=== PATIENT | male | born 1945 | race Caucasian/White ===

== ENCOUNTER 2017-01-08 00:06 | Emergency (ER) | payer MEDICARE, OTHER ==
--- NOTE | 2017-01-08 01:23 | ER Document Report ---
ED General - General Chief Complaint: Dizziness Stated Complaint: DIZZINESS,LEFT EAR PAIN Time Seen by Provider: 01/08/17 01:06 Notes: Patient is a 71-year-old male that comes to the ED for chief complaint of intermittent discomfort in the left ear, he also states that he's noticed today that when he stands up he briefly feels lightheaded, he states this resolves quickly and then he feels normal walking around. He denies any chest pain, shortness of breath, headache, head injury. Past medical history of CAD, type II diabetes, hypertension, CVA with chronic left-sided weakness. He denies any new weakness or numbness. He denies any fever or chills. He denies any cough or congestion. TRAVEL OUTSIDE OF THE [place] IN LAST 30 DAYS: No - Related Data Allergies/Adverse Reactions: iodine [Iodine] Allergy (Severe, Verified 01/08/17 00:26) pt has difficulty breathing bacitracin [Bacitracin] Allergy (Verified 01/08/17 00:26) Anaphylaxis omeprazole [Omeprazole] Allergy (Verified 01/08/17 00:26) pantoprazole [Pantoprazole] Allergy (Verified 01/08/17 00:26) shellfish derived Allergy (Verified 01/08/17 00:26) CREST TOOTHPASTE Allergy (Severe, Uncoded 01/08/17 00:26) shortness of breath, closses up throat dye Allergy (Severe, Uncoded 01/08/17 00:26) Shortness of Breath OPTHALIME Allergy (Uncoded 01/08/17 00:26) Past Medical History - General Information source: Patient - Social History Smoking Status: Never Smoker Frequency of alcohol use: None Drug Abuse: None Lives with: Family Family History: CAD - Past Medical History Cardiac Medical History: Reports: Hx Hypercholesterolemia, Hx Hypertension Denies: Hx Coronary Artery Disease, Hx Heart Attack Pulmonary Medical History: Reports: Hx Asthma Denies: Hx Bronchitis, Hx COPD, Hx Pneumonia, Hx Tuberculosis Neurological Medical History: Reports: Hx Cerebrovascular Accident - 1984, 2003( x3). Denies: Hx Seizures Endocrine Medical History: Reports: Hx Diabetes Mellitus Type 2 Renal/ Medical History: Denies: Hx Peritoneal Dialysis Musculoskeltal Medical History: Reports Hx Arthritis Psychiatric Medical History: Reports: Hx Anxiety, Hx Depression, Hx Post Traumatic Stress Disorder Past Surgical History: Reports: Hx Cardiac Catheterization, Hx Orthopedic Surgery - Bilat Knee Replacements. Denies: Hx Pacemaker - Immunizations Hx Diphtheria, Pertussis, Tetanus Vaccination: Yes Hx Pneumococcal Vaccination: 08/28/11 Review of Systems - Review of Systems Constitutional: See HPI EENT: See HPI Cardiovascular: See HPI Respiratory: No symptoms reported Gastrointestinal: No symptoms reported Genitourinary: No symptoms reported Male Genitourinary: No symptoms reported Musculoskeletal: No symptoms reported Skin: No symptoms reported Hematologic/Lymphatic: No symptoms reported Neurological/Psychological: See HPI Physical Exam - Vital signs Vitals: Temp Pulse Resp BP Pulse Ox 98.3 F 84 16 138/88 H 100 01/08/17 00:26 01/08/17 00:26 01/08/17 00:26 01/08/17 00:01/08/17 00:26 Interpretation: Normal - General General appearance: Appears well, Alert In distress: None - Patient alert and well-appearing - HEENT Head: Normocephalic, Atraumatic Eyes: Normal Conjunctiva: Normal Extraocular movements intact: Yes Eyelashes: Normal Pupils: PERRL Ears: Normal External canal: Normal Tympanic membrane: Other - Borderline left-sided effusion, no erythema, loss of landmarks, or other abnormality noted Sinus: Normal Nasal: Normal Mouth/Lips: Normal Mucous membranes: Normal Pharynx: Normal Neck: Normal - Respiratory Respiratory status: No respiratory distress Chest status: Nontender Breath sounds: Normal. No: Decreased air movement, Wheezing Chest palpation: Normal - Cardiovascular Rhythm: Regular Heart sounds: Normal auscultation Murmur: No - Abdominal Inspection: Normal Distension: No distension Bowel sounds: Normal Tenderness: Nontender Organomegaly: No organomegaly - Back Back: Normal, Nontender - Extremities General upper extremity: Nontender, Other - Patient has a slightly contracted left hand which favors all of his fingers except for the index which he moves normally, otherwise unremarkable exam General lower extremity: Normal inspection, Nontender, Normal ROM, Normal strength - Neurological Neuro grossly intact: Yes Cognition: Normal Orientation: AAOx4 [place] Coma Scale Eye Opening: Spontaneous [place] Coma Scale Verbal: Oriented [place] Coma Scale Motor: Obeys Commands [place] Coma Scale Total: 15 Speech: Normal Cranial nerves: Normal Cerebellar coordination: Normal Motor strength normal: LUE, RUE, LLE, RLE Additional motor exam normals: Equal sole filler, Other - Patient with a slightly abnormal gait which seems to favor his left leg, otherwise unremarkable Sensory: Normal - Psychological Associated symptoms: Normal affect, Normal mood - Skin Skin Temperature: Warm Skin Moisture: Dry Skin Color: Normal Course - Re-evaluation Re-evalutation: I had patient stand up in the room and ambulate, he does so without difficulty. Patient does have a slightly abnormal gait which appears to be secondary to his chronic left-sided weakness, patient states this is his normal gait. After a brief moment patient denied any lightheadedness. EKG with no acute abnormality and no change as compared to prior, cardiac enzymes negative, CBC and chemistry are generally unremarkable. Vital signs unremarkable. Patient with a borderline or effusion on the left side, physical examination is unremarkable otherwise, no acute neurological deficits. Patient heart he has a cost accounting manager that he follows with, he states that he will call them for a close follow-up, requests to be discharged at this time, I believe this is appropriate as no evidence of ACS him a arrhythmia, or other abnormality is noted or suspected. Discussed return precautions, patient and state understanding and agreement. - Vital Signs Vital signs: Temp Pulse Resp BP Pulse Ox 97.8 F 57 L 16 135/73 H 98 01/08/17 03:06 01/08/17 03:06 01/08/17 03:06 01/08/17 03:06 01/08/17 03:06 - Laboratory Result Diagrams: 01/08/17 01:35 01/08/17 01:35 Laboratory results interpreted by me: 01/08/17 01/08/17 01:35 01:35 RBC 4.34 L RDW 15.0 H Chloride 108 H Carbon Dioxide 20 L BUN 25 H Creatinine 1.69 H Est GFR ( Amer) 49 L Est GFR (Non-Af Amer) 40 L Glucose 120 H Discharge - Discharge Clinical Impression: Lightheadedness, Discomfort of left ear Condition: Stable Disposition: HOME, SELF-CARE Additional Instructions: Use the nasal spray to help clear the congestion and fluid behind your left eardrum. No infection is seen. Your workup shows no acute abnormalities. If symptoms of intermittent mild lightheadedness after standing continue please follow-up closely with your cost accounting manager in the next several days. Return immediately for any concerning worsening symptoms including passing out, chest pain, headache, numbness or weakness, or any other concerning symptoms. Prescriptions: Fluticasone Propionate [Flonase Nasal [place] 50 Mcg/[place] 16 gm] 1 spray NASL Q12 #1 inhaler Referrals: ROSALES DIALLO, WAREHOUSE DELIVERY MANAGER [Primary Care Provider] - Follow up as needed
[2017-01-08 01:52] LABS: ABSOLUTE BASOPHILS # (AUTO) 0.1 10^3/uL (0.0-0.2); ABSOLUTE EOSINOPHILS # (AUTO) 0.1 10^3/uL (0.0-0.6); ABSOLUTE LYMPHOCYTES (AUTO) 1.5 10^3/uL (0.5-4.7); ABSOLUTE MONOCYTES (AUTO) 0.5 10^3/uL (0.1-1.4); ABSOLUTE NEUT (AUTO) 4.6 10^3/uL (1.7-8.2); BASOPHILS % (AUTO) 1.3 % (0-2); EOSINOPHILS % (AUTO) 1.6 % (0-6); HEMATOCRIT 39.6 % (37.9-51.0); HEMOGLOBIN 13.7 g/dL (13.5-17.0); HGB HCT DIFFERENCE 1.5; LYMPHOCYTES % (AUTO) 21.6 % (13-45); MEAN CORPUSCULAR HEMOGLOBIN 31.5 pg (27.0-33.4); MEAN CORPUSCULAR HGB CONC 34.6 g/dL (32.0-36.0); MEAN CORPUSCULAR VOLUME 91 fl (80-97); MONOCYTES % (AUTO) 7.8 % (3-13); RED BLOOD COUNT 4.34 10^6/uL (4.35-5.55); SEGMENTED NEUTROPHILS % (AUTO) 67.7 % (42-78); WHITE BLOOD COUNT 6.8 10^3/uL (4.0-10.5)
[2017-01-08 02:14] LABS: ANION GAP 13 (5-19); BLOOD UREA NITROGEN 25 mg/dL (7-20); CALCIUM 10.1 mg/dL (8.4-10.2); CARBON DIOXIDE 20 mmol/L (22-30); CHLORIDE 108 mmol/L (98-107); CREATINE KINASE 61 U/L (55-170); CREATININE RESULT 1.69 mg/dL (0.52-1.25); GLUCOSE 120 mg/dL (75-110); POTASSIUM 4.7 mmol/L (3.6-5.0); SODIUM 141.3 mmol/L (137-145)
[2017-01-08 02:28] LABS: TROPONIN I < 0.012 ng/mL
[2017-01-08 03:28] VITALS: BP 135/73
--- NOTE | 2017-01-08 11:44 | EKG REPORT ---
SEVERITY:- ABNORMAL ECG - SINUS RHYTHM FIRST DEGREE AV BLOCK BORDERLINE LEFT AXIS DEVIATION ABNRM R PROG, CONSIDER ASMI OR LEAD PLACEMENT BORDERLINE T ABNORMALITIES, INFERIOR LEADS : Confirmed by: Madina Escoto 08-Jan-2017 11:43:32
== END 2017-01-08 03:30 | disposition home or self-care (01) ==
LOC: ER 00:06
DX: R42 Dizziness and giddiness (principal); H92.02 Otalgia, left ear; E11.9 Type 2 diabetes mellitus without complications; I25.10 Atherosclerotic heart disease of native coronary artery without angina pectoris; I69.354 Hemiplegia and hemiparesis following cerebral infarction affecting left non-dominant side; I10 Essential (primary) hypertension; J45.909 Unspecified asthma, uncomplicated; Z88.8 Allergy status to other drugs, medicaments and biological substances; Z91.013 Allergy to seafood; Z87.892 Personal history of anaphylaxis; Z88.1 Allergy status to other antibiotic agents
CPT/HCPCS: 36415; 80048; 82550; 82553; 84484; 85025; 93005; 93010; 99284

== ENCOUNTER 2017-05-09 09:15 | Day surgery (SDC) | payer MEDICARE, OTHER ==
[2017-05-02 11:07] LABS: ABSOLUTE EOSINOPHILS # (AUTO) 0.2 10^3/uL (0.0-0.6); ABSOLUTE LYMPHOCYTES (AUTO) 1.2 10^3/uL (0.5-4.7); ABSOLUTE MONOCYTES (AUTO) 0.6 10^3/uL (0.1-1.4); BASOPHILS % (AUTO) 0.5 % (0-2); EOSINOPHILS % (AUTO) 2.2 % (0-6); HEMATOCRIT 37.2 % (37.9-51.0); HEMOGLOBIN 12.9 g/dL (13.5-17.0); HGB HCT DIFFERENCE 1.5; LYMPHOCYTES % (AUTO) 17.3 % (13-45); MEAN CORPUSCULAR HEMOGLOBIN 32.5 pg (27.0-33.4); MEAN CORPUSCULAR HGB CONC 34.7 g/dL (32.0-36.0); MEAN CORPUSCULAR VOLUME 94 fl (80-97); MONOCYTES % (AUTO) 8.7 % (3-13); RED BLOOD COUNT 3.98 10^6/uL (4.35-5.55); SEGMENTED NEUTROPHILS % (AUTO) 71.3 % (42-78)
[2017-05-02 11:33] LABS: ANION GAP 11 (5-19); BLOOD UREA NITROGEN 24 mg/dL (7-20); CALCIUM 10.3 mg/dL (8.4-10.2); CARBON DIOXIDE 25 mmol/L (22-30); CHLORIDE 105 mmol/L (98-107); CREATININE RESULT 1.69 mg/dL (0.52-1.25); GLUCOSE 102 mg/dL (75-110); POTASSIUM 5.1 mmol/L (3.6-5.0); SODIUM 140.8 mmol/L (137-145)
--- NOTE | 2017-05-02 12:00 | RADIOLOGY REPORT (SQ) ---
EXAM DESCRIPTION: CHEST PA/LATERAL COMPLETED DATE/TIME: 05/02/2017 11:07 am REASON FOR STUDY: PRE OP COMPARISON: 05/19/2016 EXAM PARAMETERS: NUMBER OF VIEWS: two views TECHNIQUE: Digital Frontal and Lateral radiographic views of the chest acquired. RADIATION DOSE: NA LIMITATIONS: none FINDINGS: LUNGS AND PLEURA: No opacities, masses or pneumothorax. No pleural effusion. MEDIASTINUM AND HILAR STRUCTURES: No masses or contour abnormalities. HEART AND VASCULAR STRUCTURES: Heart normal size. No evidence for failure. BONES: No acute findings. HARDWARE: None in the chest. OTHER: No other significant finding. IMPRESSION: NO SIGNIFICANT RADIOGRAPHIC FINDING IN THE CHEST. TECHNICAL DOCUMENTATION: JOB ID: [id number] [employer]- All Rights Reserved
--- NOTE | 2017-05-02 12:51 | EKG REPORT ---
SEVERITY:- ABNORMAL ECG - SINUS RHYTHM. LOW VOLTAGE IN FRONTAL LEADS BORDERLINE R WAVE PROGRESSION, ANTERIOR LEADS BORDERLINE T WAVE ABNORMALITIES : Confirmed by: Italo Mckoen MD 02-May-2017 12:51:03
[2017-05-02 18:11] LABS: APPEARANCE,URINE CLEAR; BILIRUBIN,URINE NEGATIVE (NEGATIVE); GLUCOSE, URINE NEGATIVE (NEGATIVE); KETONES,URINE NEGATIVE (NEGATIVE); LEUKOCYTE ESTERASE,URINE NEGATIVE (NEGATIVE); NITRITE,URINE NEGATIVE (NEGATIVE); PROTEIN,URINE NEGATIVE (NEGATIVE); URINE SPECIFIC GRAVITY 1.018; UROBILINOGEN,URINE NEGATIVE mg/dL (<2.0)
[~2017-05-09 09:15] MED LIST: CEFAZOLIN 2 GM/D5W RTU 2 GM/50 ML RTUPB IV PRN; LIDOCAINE 0.5% INJ-PF (5 MG/ML) 50 ML SDV INJ PRN; RINGERS SOLUTION,LACTATED 1,000 ML IV PRN
[2017-05-09] MEDS ORDERED: BUPIVACAINE HCL 0.5 % INJ/PF 30 ML SDV ONE (09:20)
[2017-05-09] MEDS ORDERED: LIDOCAINE 1% INJ-PF (10 MG/ML) 30 ML SDV ONE (09:20)
[2017-05-09] MEDS ORDERED: KETAMINE HCL INJ 500 MG/10 ML VIAL ONE (11:45)
[2017-05-09] MEDS ORDERED: FENTANYL CITRATE INJ/PF 100 MCG/2 ML AMPUL ONE (11:46)
[2017-05-09] MEDS ORDERED: PROPOFOL INJ 200 MG/20 ML VIAL IV ONE (11:46)
[2017-05-09] MEDS ORDERED: MIDAZOLAM 2 MG/2 ML INJ ONE (11:46)
[2017-05-09] MEDS ORDERED: FENTANYL CITRATE INJ/PF 100 MCG/2 ML AMPUL IV PRN ×2 (12:48)
[2017-05-09] MEDS ORDERED: DIPHENHYDRAMINE HCL 50 MG/ML VIAL IV PRN (12:48)
--- NOTE | 2017-05-09 13:39 | PDOC DISCHARGE SUMMARY ---
Discharge Summary (SDC) - Discharge Final Diagnosis: Left hand contracture Date of Surgery: 05/09/17 Discharge Date: 05/09/17 Condition: Good Treatment or Instructions: Schedule Follow Up w/ Dr. Kyle Arana @ [facility] for Surgery to be seen in 10-14 days or as scheduled [place]: [place]: [place]: Patient to begin occupational therapy postop day #2. Ice and elevate May begin finger range of motion attempting to make full fist. Stool softener of choice when on pain medication. Prescriptions: Oxycodone HCl/Acetaminophen [Percocet 5-325 mg Tablet] 1 - 2 tab PO ASDIR PRN # 50 tablet PRN Reason: Referrals: ROSALES DIALLO LIVING SUPERVISOR [Primary Care Provider] - Respiratory Treatments at Home: Deep Breathing/Coughing Discharge Activity: Activity As Tolerated Report the Following to Your Physician Immediately: Fever over 101 Degrees, Unusual Bleeding, Redness, Swelling, Warmth, Increased Soreness
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
[2017-05-09] MEDS ORDERED: MORPHINE SULFATE 10 MG/ML INJ IV PRN (14:38)
[2017-05-09] MEDS ORDERED: ONDANSETRON HCL INJ/PF 4 MG/2 ML SDV IV PRN (14:38)
[2017-05-09] MEDS ORDERED: OXYCODONE-ACETAMINOPHEN 5-325 MG TABLET PO PRN (14:38)
[2017-05-09 16:31] VITALS: BP 107/72
== END 2017-05-09 15:25 | disposition home or self-care (01) ==
LOC: OROUT 09:15
PROVIDERS: ATTEND Orthopaedic Surgery
PROC: 0LN80ZZ Release Left Hand Tendon, Open Approach (ICD-10-PCS; 2017-05-09)
PROC: 0LN80ZZ Release Left Hand Tendon, Open Approach (ICD-10-PCS; 2017-05-09)
PROC: 0LN80ZZ Release Left Hand Tendon, Open Approach (ICD-10-PCS; principal; 2017-05-09 11:15)
DX: M24.542 Contracture, left hand (principal); M20.022 Boutonniere deformity of left finger(s); M65.842 Other synovitis and tenosynovitis, left hand; M19.90 Unspecified osteoarthritis, unspecified site; E11.9 Type 2 diabetes mellitus without complications; I10 Essential (primary) hypertension; Z96.653 Presence of artificial knee joint, bilateral; K21.9 Gastro-esophageal reflux disease without esophagitis; M79.642 Pain in left hand; J45.909 Unspecified asthma, uncomplicated; I25.10 Atherosclerotic heart disease of native coronary artery without angina pectoris; Z79.51 Long term (current) use of inhaled steroids; Z79.02 Long term (current) use of antithrombotics/antiplatelets; Z79.899 Other long term (current) drug therapy; Z86.73 Personal history of transient ischemic attack (TIA), and cerebral infarction without residual deficits; Z79.82 Long term (current) use of aspirin
CPT/HCPCS: 93005; 36415; 82962; 85025; 80048; 81001; 83036; 71020; 93010; 26445 ×3; 26593 ×3; J2250; J3010; J3490; J2704; J0690; 1810

== ENCOUNTER 2019-03-04 11:00 | Observation (INO) | payer MEDICARE, OTHER ==
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
[2019-03-04 11:50] LABS: ABSOLUTE EOSINOPHILS # (AUTO) 0.1 10^3/uL (0.0-0.6); ABSOLUTE LYMPHOCYTES (AUTO) 1.1 10^3/uL (0.5-4.7); ABSOLUTE MONOCYTES (AUTO) 0.7 10^3/uL (0.1-1.4); ABSOLUTE NEUT (AUTO) 6.3 10^3/uL (1.7-8.2); BASOPHILS % (AUTO) 0.5 % (0-2); EOSINOPHILS % (AUTO) 1.1 % (0-6); HEMATOCRIT 42.8 % (37.9-51.0); HEMOGLOBIN 14.3 g/dL (13.5-17.0); LYMPHOCYTES % (AUTO) 12.9 % (13-45); MEAN CORPUSCULAR HEMOGLOBIN 30.7 pg (27.0-33.4); MEAN CORPUSCULAR HGB CONC 33.4 g/dL (32.0-36.0); MEAN CORPUSCULAR VOLUME 92 fl (80-97); PLATELET COUNT 170 10^3/uL (150-450); RED BLOOD COUNT 4.65 10^6/uL (4.35-5.55); RED CELL DISTRIBUTION WIDTH 14.6 % (11.5-14.0); SEGMENTED NEUTROPHILS % (AUTO) 77.5 % (42-78); TOTAL CELLS COUNTED % (AUTO) 100 %; WHITE BLOOD COUNT 8.2 10^3/uL (4.0-10.5)
--- NOTE | 2019-03-04 12:06 | RADIOLOGY REPORT (SQ) ---
EXAM DESCRIPTION: CHEST SINGLE VIEW COMPLETED DATE/TIME: 03/04/2019 11:30 am REASON FOR STUDY: bed 4 cp COMPARISON: 05/19/2016 EXAM PARAMETERS: NUMBER OF VIEWS: One view. TECHNIQUE: Single frontal radiographic view of the chest acquired. RADIATION DOSE: NA LIMITATIONS: None. FINDINGS: LUNGS AND PLEURA: No opacities, masses or pneumothorax. No pleural effusion. MEDIASTINUM AND HILAR STRUCTURES: No masses. Contour normal. HEART AND VASCULAR STRUCTURES: Heart normal in size. Normal vasculature. BONES: No acute findings. HARDWARE: None in the chest. OTHER: No other significant finding. IMPRESSION: NO ACUTE RADIOGRAPHIC FINDING IN THE CHEST. TECHNICAL DOCUMENTATION: JOB ID: [id number] [employer]- All Rights Reserved Reading location - IP/workstation name: [email or web address]
[2019-03-04 12:17] LABS: CREATINE KINASE MB 0.95 ng/mL (<4.55); TROPONIN I 0.014 ng/mL
[2019-03-04 13:12] LABS: ALANINE AMINOTRANSFERASE 16 U/L (21-72); ALBUMIN 3.5 g/dL (3.5-5.0); ALKALINE PHOSPHATASE 51 U/L (38-126); ANION GAP 7 (5-19); ASPARTATE AMINO TRANSFERASE 27 U/L (17-59); BILIRUBIN,DIRECT 0.2 mg/dL (0.0-0.4); BILIRUBIN,TOTAL 0.7 mg/dL (0.2-1.3); BLOOD UREA NITROGEN 22 mg/dL (7-20); CARBON DIOXIDE 29 mmol/L (22-30); CHLORIDE 104 mmol/L (98-107); CREATINE KINASE 35 U/L (55-170); GLUCOSE 95 mg/dL (75-110); POTASSIUM 4.7 mmol/L (3.6-5.0); SODIUM 140.1 mmol/L (137-145); TOTAL PROTEIN 6.8 g/dL (6.3-8.2)
[2019-03-04] MEDS ORDERED: ASPIRIN 81 MG TABLET, CHEWABLE PO ONE (14:59)
[2019-03-04] MEDS ORDERED: NITROGLYCERIN 0.4 MG/TAB 25 TAB/BOTTLE SL PRN (15:00)
--- NOTE | 2019-03-04 17:40 | PDOC H&P ---
History of Present Illness Admission Date/PCP: ROSALES DIALLO NP Patient complains of: SOB, chest pain History of Present Illness: SHANNAN CRENSHAW is a 73 year old male with a past medical history of diabetes mellitus type 2, CAD with prior stenting, COPD not on home O2 and history of bladder cancer in remission who presented with difficulty standing up. He also presented with chest pain. Patient says that 4 days ago he felt little dizzy and sustained a head c oncussion. He denies having lost consciousness. He said this morning, he says he was having difficulty standing up as he was having shortness of breath. When prompted, he says that he has been having worsening shortness of breath in the past 3 nights. He does say that he has chronic shortness of breath from his COPD. He also says that last night around 1 AM, he started having a left-sided throbbing chest pain, 3/10 in intensity, nonradiating. Upon encounter, he is saturating at 93% on nasal cannula but dropped down to 88 when he tried to stand up. He is currently chest pain-free. He says he is not short of breath on resting but does feel winded when he tries to stand or sit up. He had a stent placed in 2001. He says he follows up with April Mckinney. He says that he has contrast and dye allergy and that he had severe shortness of breath before. When asked about the circumstances of the contrast allergy given that he had a previous cath and successful stent placement, he says that he was closely monitored but does state that he has contrast allergy. He expressed he does not want any type of contrast study or procedure done. We discussed also his advanced directive in length. Patient says that he is a DNR/DNI. He verbalizes he does not want any chest compressions, defibrillation or mechanical ventilation if the need arises. He also says he does not want to pursue any cardiac cath if the need arises and does not want to risk any adverse effects from any dye or contrast based study or procedure. Past Medical History Cardiac Medical History: Reports: Coronary Artery Disease - WITH STENT, Hyperlipidema Denies: Myocardial Infarction, Hypertension Pulmonary Medical History: Reports: Chronic Obstructive Pulmonary Disease (COPD) - DOES NOT WEAR O2 Denies: Asthma, Bronchitis, Pneumonia, Tuberculosis Neurological Medical History: Denies: Seizures Endocrine Medical History: Reports: Diabetes Mellitus Type 2 Musculoskeltal Medical History: Reports: Arthritis Psychiatric Medical History: Reports: Depression, Post Traumatic Stress Disorder Hematology: Denies: Anemia Past Surgical History Past Surgical History: Reports: Cardiac Catheterization, Orthopedic Surgery - Bilat Knee Replacements Denies: Pacemaker Social History Smoking Status: Never Smoker Frequency of Alcohol Use: Social Hx Recreational Drug Use: No Drugs: None Hx Prescription Drug Abuse: No Family History Family History: CAD Parental Family History Reviewed: Yes - No premature CAD Children Family History Reviewed: No Sibling(s) Family History Reviewed.: No Medication/Allergy Home Medications: Brimonidine Tartrate [Alphagan 0.2% Oph Soln 5 ml] 1 drop OU TID 03/04/19 Celecoxib [Celebrex 200 mg Capsule] 200 mg PO DAILYP PRN 03/04/19 Clonazepam [Klonopin] 1 mg PO Q8 03/04/19 Clopidogrel Bisulfate [Plavix 75 mg Tablet] 75 mg PO QHS 03/04/19 Dextran 70/Hypromellose [Artificial Tears] 1 drop OU QID 03/04/19 Dorzolamide HCl [Trusopt Plus 2% Oph Soln 10 Ml] 1 drop OU BID 03/04/19 Epinephrine [Epipen] 0.3 mg IJ ASDIR PRN 03/04/19 Escitalopram Oxalate [Lexapro] 40 mg PO QHS 03/04/19 Glipizide [Glucotrol] 2.5 mg PO DAILY 03/04/19 Isosorbide Mononitrate [Imdur 60 mg Tablet.er] 60 mg PO DAILY 03/04/19 Lansoprazole [Prevacid] 30 mg PO QHS 03/04/19 Latanoprost [Xalatan 0.005% Oph Soln 2.5 ml] 1 drop OU QHS 03/04/19 Nitroglycerin [Nitrostat 0.4 mg (1/150 Gr) Tabs 25/Bottle] 1 tab SL Q5MP PRN 03/04/19 Prazosin HCl [Minipress] 1 mg PO QHS 03/04/19 Soft Lens Adjunctive Solutions [Lubricating Drops] 1 drop OU QHS 03/04/19 Trazodone HCl [Desyrel 50 mg Tablet] 75 mg PO QHS 03/04/19 Allergies/Adverse Reactions: iodine [Iodine] Allergy (Severe, Verified 05/02/17 10:05) pt has difficulty breathing bacitracin [Bacitracin] Allergy (Verified 05/02/17 10:05) Anaphylaxis omeprazole [Omeprazole] Allergy (Verified 05/02/17 10:05) pantoprazole [Pantoprazole] Allergy (Verified 05/02/17 10:05) shellfish derived Allergy (Verified 05/02/17 10:05) CREST TOOTHPASTE Allergy (Severe, Uncoded 05/02/17 10:05) shortness of breath, closses up throat dye Allergy (Severe, Uncoded 05/02/17 10:05) Shortness of Breath OPTHALIME Allergy (Uncoded 05/02/17 10:05) Review of Systems All systems: reviewed and no additional remarkable complaints except as stated - As mentioned in HPI Physical Exam Vital Signs: Temp Pulse Resp BP Pulse Ox 98.3 F 28 H 152/82 H 90 L 03/04/19 11:07 03/04/19 11:07 03/04/19 11:07 03/04/19 11:07 Intake & Output 03/03/19 03/04/19 03/05/19 06:59 06:59 06:59 Weight 258 lb General appearance: PRESENT: no acute distress, well-developed, well-nourished Head exam: PRESENT: normocephalic, other - Right-sided frontal concussion Eye exam: PRESENT: conjunctiva pink, EOMI, PERRLA. ABSENT: scleral icterus Ear exam: PRESENT: normal external ear exam Mouth exam: PRESENT: moist, tongue midline Neck exam: ABSENT: carotid bruit, JVD, lymphadenopathy, thyromegaly Respiratory exam: PRESENT: clear to auscultation cesar. ABSENT: rales, rhonchi, wheezes Cardiovascular exam: PRESENT: RRR. ABSENT: diastolic murmur, rubs, systolic murmur Pulses: PRESENT: normal dorsalis pedis pul GI/Abdominal exam: PRESENT: normal bowel sounds, soft. ABSENT: distended, guarding, mass, organolmegaly, rebound, tenderness Rectal exam: PRESENT: deferred Extremities exam: PRESENT: full ROM. ABSENT: calf tenderness, clubbing, pedal edema Neurological exam: PRESENT: alert, awake, oriented to person, oriented to place, oriented to time, oriented to situation, CN II-XII grossly intact. ABSENT: motor sensory deficit Results Laboratory Results: 03/04/19 11:00 03/04/19 12:30 03/04/19 03/04/19 03/04/19 11:00 11:00 12:30 WBC 8.2 RBC 4.65 Hgb 14.3 Hct 42.8 MCV 92 MCH 30.7 MCHC 33.4 RDW 14.6 H Plt Count 170 Seg Neutrophils % 77.5 Lymphocytes % 12.9 L Monocytes % 8.0 Eosinophils % 1.1 Basophils % 0.5 Absolute Neutrophils 6.3 Absolute Lymphocytes 1.1 Absolute Monocytes 0.7 Absolute Eosinophils 0.1 Absolute Basophils 0.0 Sodium Cancelled 140.1 Potassium Cancelled 4.7 Chloride Cancelled 104 Carbon Dioxide Cancelled 29 Anion Gap Cancelled 7 BUN Cancelled 22 H Creatinine Cancelled 1.23 Est GFR ( Amer) Cancelled > 60 Est GFR (Non-Af Amer) Cancelled 58 L Glucose Cancelled 95 Calcium Cancelled 9.0 Total Bilirubin Cancelled 0.7 AST Cancelled 27 ALT Cancelled 16 L Alkaline Phosphatase Cancelled 51 Total Protein Cancelled 6.8 Albumin Cancelled 3.5 03/04/19 03/04/19 03/04/19 11:00 11:00 12:30 Creatine Kinase Cancelled 35 L CK-MB (CK-2) 0.95 Troponin I 0.014 Impressions: Chest X-Ray 03/04/19 11:05 IMPRESSION: NO ACUTE RADIOGRAPHIC FINDING IN THE CHEST. Assessment and Plan - Diagnosis (1) Acute respiratory failure with hypoxia Is this a current diagnosis for this admission?: Yes Plan: As mentioned, patient desaturated to 88% on 2 L of nasal cannula. Will check a d-dimer and consider a VQ scan to assess for PE. No CTA due to contrast allergy. (2) Chest pain Qualifiers: Chest pain type: other chest pain Qualified Code(s): R07.89 - Other chest pain; R07.8 - Other chest pain Is this a current diagnosis for this admission?: Yes Plan: Troponin at 0.014. No ischemic changes on EKG. We will continue to cycle troponins and EKGs. Request records from [facility]. (3) LUANN (obstructive sleep apnea) Is this a current diagnosis for this admission?: Yes Plan: Patient says he is supposed to be on CPAP but is not using at home due to him having anxiety and PTSD. (4) Hypertension Is this a current diagnosis for this admission?: Yes Plan: Resume home meds once verified. (5) Diabetes mellitus type 2 in obese Is this a current diagnosis for this admission?: Yes Plan: Sliding scale for now. Accu-Cheks before meals at bedtime. - Time Time Spent with patient: 35 or more minutes
--- NOTE | 2019-03-04 17:42 | ADVANCED CARE ---
- Diagnosis (1) Acute respiratory failure with hypoxia Diagnosis Current: Yes (2) CAD (coronary artery disease) Diagnosis Current: Yes (3) Chest pain Diagnosis Current: Yes (4) LUANN (obstructive sleep apnea) Diagnosis Current: Yes (5) Hypertension Diagnosis Current: Yes (6) Diabetes mellitus type 2 in obese Diagnosis Current: Yes Resuscitation Status: Do Not Resuscitate Discussion: We discussed also his advanced directive in length. Patient says that he is a DNR/DNI. He verbalizes he does not want any chest compressions, defibrillation or mechanical ventilation if the need arises. He also says he does not want to pursue any cardiac cath if the need arises and does not want to risk any adverse effects from any dye or contrast based study or procedure. Patient says that his , Sharonda is his medical surrogate decision-maker.
--- NOTE | 2019-03-04 19:26 | EKG REPORT ---
SEVERITY:- ABNORMAL ECG - SINUS RHYTHM MULTIPLE VENTRICULAR PREMATURE COMPLEXES PROBABLE INFERIOR INFARCT, AGE INDETERMINATE BORDERLINE R WAVE PROGRESSION, ANTERIOR LEADS : Confirmed by: Clara Stein MD 04-Mar-2019 19:26:02
--- NOTE | 2019-03-04 19:37 | RADIOLOGY REPORT (SQ) ---
EXAM DESCRIPTION: NM LUNG VENT/PERF SCAN COMPLETED DATE/TIME: 03/04/2019 7:13 pm REASON FOR STUDY: HYPOXIA COMPARISON: Earlier chest radiograph RADIONUCLIDE AND DOSE: 5.43 millicuries TC-99m MAA Intravenous 32.5 millicuries TC-99m DTPA Inhaled aerosol TECHNIQUE: Eight views of the lungs acquired post ventilation of DTPA aerosol. Eight matching views of the lungs acquired following injection of MAA. LIMITATIONS: Patient unable to perform ventilatory technique properly. FINDINGS: VENTILATION: Heterogeneous centralized clumping of radiotracer on ventilatory scan. PERFUSION: Notably diminished radiotracer in the right upper lobe. Mild heterogeneous perfusion in t he remaining lobes. OTHER: No other significant finding. IMPRESSION: Abnormal appearance with notably diminished radiotracer in the right upper lobe, segment al emboli could give this appearance. Mild heterogeneous perfusion in the remaining lobes. Heteroge neous centralized clumping of radiotracer on ventilatory scan, technologist reported that the patient was unable to perform ventilatory technique properly. CT angiogram may be useful to further assess. TECHNICAL DOCUMENTATION: JOB ID: [id number] [place]-72 2010 [employer]- All Rights Reserved Reading location - IP/workstation name: [email or web address]
[2019-03-04] MEDS: HEPARIN SOD (PORCINE) 5,000 UNIT/ML 1 ML SYRINGE SUBCUT SCH (21:54)
[2019-03-04] MEDS ORDERED: ATORVASTATIN CALCIUM 40 MG TABLET PO SCH (22:00)
[2019-03-05] MEDS: HEPARIN SOD (PORCINE) 5,000 UNIT/ML 1 ML SYRINGE SUBCUT SCH (06:46)
[2019-03-05 10:42] VITALS: BP 164/90
[2019-03-05] MEDS ORDERED: NITROGLYCERIN 0.4 MG/TAB 25 TAB/BOTTLE SL PRN (11:12)
[2019-03-05] MEDS ORDERED: CLONAZEPAM 1 MG TABLET PO PRN (11:14)
[2019-03-05] MEDS ORDERED: ISOSORBIDE MONONITRATE 60 MG TAB.ER.24H PO SCH (12:00)
[2019-03-05] MEDS ORDERED: CLOPIDOGREL BISULFATE 75 MG TABLET PO SCH (22:00)
[2019-03-05] MEDS ORDERED: TRAZODONE HCL 50 MG TABLET PO SCH (22:00)
[2019-03-05] MEDS ORDERED: (PENDING PHARMACY ID) (Escitalopram Oxalate [Lexapro] 40 MG) PO SCH (22:00)
[2019-03-05] MEDS ORDERED: (PENDING PHARMACY ID) (Prazosin Hcl [Minipress] 1 MG) PO SCH (22:00)
[2019-03-05] MEDS ORDERED: (PENDING PHARMACY ID) (Lansoprazole [Prevacid] 30 MG) PO SCH (22:00)
[2019-03-05] MEDS ORDERED: ESCITALOPRAM OXALATE 10 MG TABLET PO SCH (22:00)
== END 2019-03-05 16:05 | disposition left against medical advice (07) ==
LOC: ER 11:00 → EH 15:11 → 5 03-05 00:13
PROVIDERS: ADMIT Internal Medicine; ATTEND Internal Medicine
DX: J96.01 Acute respiratory failure with hypoxia (principal); R07.89 Other chest pain; G47.33 Obstructive sleep apnea (adult) (pediatric); I10 Essential (primary) hypertension; E11.9 Type 2 diabetes mellitus without complications; E66.9 Obesity, unspecified; I25.10 Atherosclerotic heart disease of native coronary artery without angina pectoris; R42 Dizziness and giddiness; F41.9 Anxiety disorder, unspecified; F43.10 Post-traumatic stress disorder, unspecified; R26.89 Other abnormalities of gait and mobility; I49.3 Ventricular premature depolarization; S06.0X0A Concussion without loss of consciousness, initial encounter; S00.81XA Abrasion of other part of head, initial encounter; W19.XXXA Unspecified fall, initial encounter; Y92.481 Parking lot as the place of occurrence of the external cause; Z95.5 Presence of coronary angioplasty implant and graft; Z85.51 Personal history of malignant neoplasm of bladder; Z91.041 Radiographic dye allergy status; Z66 Do not resuscitate; Z96.653 Presence of artificial knee joint, bilateral; Z82.49 Family history of ischemic heart disease and other diseases of the circulatory system; Z79.02 Long term (current) use of antithrombotics/antiplatelets; Z79.84 Long term (current) use of oral hypoglycemic drugs; Z91.19 Patient's noncompliance with other medical treatment and regimen; Z86.73 Personal history of transient ischemic attack (TIA), and cerebral infarction without residual deficits
CPT/HCPCS: 93005; 99291; 96374; 36415; 82553; 82550; 85025; 80053; 84484; 85379; 71045; 78582; 93010; G0378 ×2; A9540; A9567; A9270 ×2; J1644 ×2; J3490; Q9969

== ENCOUNTER 2019-09-14 23:26 | Inpatient (IN) | payer MEDICARE, OTHER ==
[2019-09-15] MEDS ORDERED: METHYLPREDNISOLONE INJ 125 MG/2 ML SDV IV ONE (01:14)
[2019-09-15] MEDS ORDERED: IPRATROPIUM/ALBUTEROL 0.5-2.5 MG/3 ML AMPUL NEB ONE ×2 (01:14→01:55)
--- NOTE | 2019-09-15 01:15 | ER Document Report ---
ED Respiratory Problem - General Chief Complaint: Shortness Of Breath Stated Complaint: Shortness of Breath Time Seen by Provider: 09/15/19 01:06 Notes: Patient is a 73-year-old male that comes emergency department for chief complaint of difficulty breathing, cough, chest congestion, and fever. He states he coughed until he threw up once. He states he has been worsening over the past 3 days. He states he had a temperature of 102 F at home. He was seen by his primary care provider and placed on doxycycline, he has had several doses. He has a history of COPD, denies smoking, he is not on home oxygen. Medical history also includes CAD, CVA, type 2 diabetes. He lives at home with his . TRAVEL OUTSIDE OF THE [place] IN LAST 30 DAYS: No - Related Data Allergies/Adverse Reactions: iodine [Iodine] Allergy (Severe, Verified 05/02/17 10:05) pt has difficulty breathing bacitracin [Bacitracin] Allergy (Verified 05/02/17 10:05) Anaphylaxis omeprazole [Omeprazole] Allergy (Verified 05/02/17 10:05) pantoprazole [Pantoprazole] Allergy (Verified 05/02/17 10:05) shellfish derived Allergy (Verified 05/02/17 10:05) CREST TOOTHPASTE Allergy (Severe, Uncoded 05/02/17 10:05) shortness of breath, closses up throat dye Allergy (Severe, Uncoded 05/02/17 10:05) Shortness of Breath OPTHALIME Allergy (Uncoded 05/02/17 10:05) Past Medical History - General Information source: Patient - Social History Smoking Status: Never Smoker Frequency of alcohol use: None Drug Abuse: None Lives with: Family Family History: Reviewed & Not Pertinent, CAD Patient has suicidal ideation: No Patient has homicidal ideation: No - Past Medical History Cardiac Medical History: Reports: Hx Coronary Artery Disease - WITH STENT, Hx Hypercholesterolemia Denies: Hx Heart Attack, Hx Hypertension Pulmonary Medical History: Reports: Hx COPD - DOES NOT WEAR O2 Denies: Hx Asthma, Hx Bronchitis, Hx Pneumonia, Hx Tuberculosis Neurological Medical History: Reports: Hx Cerebrovascular Accident - 1983. Denies: Hx Seizures Endocrine Medical History: Reports: Hx Diabetes Mellitus Type 2 Renal/ Medical History: Denies: Hx Peritoneal Dialysis Musculoskeletal Medical History: Reports Hx Arthritis Psychiatric Medical History: Reports: Hx Anxiety, Hx Depression, Hx Post Traumatic Stress Disorder Past Surgical History: Reports: Hx Cardiac Catheterization, Hx Orthopedic Surgery - Bilat Knee Replacements. Denies: Hx Pacemaker - Immunizations Hx Diphtheria, Pertussis, Tetanus Vaccination: Yes Hx Pneumococcal Vaccination: 08/28/11 Review of Systems - Review of Systems Constitutional: See HPI EENT: No symptoms reported Cardiovascular: See HPI Respiratory: See HPI Gastrointestinal: No symptoms reported Genitourinary: No symptoms reported Male Genitourinary: No symptoms reported Musculoskeletal: No symptoms reported Skin: No symptoms reported Hematologic/Lymphatic: No symptoms reported Neurological/Psychological: No symptoms reported Physical Exam - Vital signs Vitals: Temp Pulse Resp BP Pulse Ox 98.1 F 105 H 22 H 132/66 H 87 L 09/14/19 23:43 09/14/19 23:43 09/14/19 23:43 09/14/19 23:43 09/14/19 23:43 - Notes Notes: GENERAL: Alert, interacts well. HEAD: Normocephalic, atraumatic. EYES: Pupils equal, round, and reactive to light. Extraocular movements intact. ENT: Oral mucosa moist, tongue midline. Oropharynx unremarkable. Airway patent. Nares patent, no nasal septal hematoma NECK: Full range of motion. Supple. Trachea midline. LUNGS: Tachypnea, expiratory wheezes, scattered rhonchi, mildly labored breathing. No noted rales. HEART: Regular rate and rhythm. No murmur ABDOMEN: Soft, non-tender. Non-distended. Bowel sounds present in all 4 quadrants. GENITOURINARY: Deferred EXTREMITIES: Moves all 4 extremities spontaneously. No edema, normal radial and dorsalis pedis pulses bilaterally. No cyanosis. BACK: no cervical, thoracic, lumbar midline tenderness. No saddle anesthesia, normal distal neurovascular exam. Moves all extremities in full range of motion. NEUROLOGICAL: Alert and oriented x3. Normal speech. Cranial nerves II through XII grossly intact. SKIN: Warm, dry, normal turgor. No rashes or lesions noted. Course - Re-evaluation Re-evalutation: Patient is not hypoxic on 3 L nasal cannula but he has slight tachypnea, expiratory wheezes and rhonchi throughout. He was given duo nebs, Solu-Medrol, he did improve but still has scattered rhonchi. No overt rales, no lower extremity swelling. Chest x-ray showing possible pulmonary vascular congestion, BNP slightly elevated. I feel most strongly that this is atypical or viral pneumonia based on his fever, cough, presentation. Patient significantly improved after DuoNeb's. He was given treatment for pneumonia, he has not had any recent hospitaliz ation. CBC unremarkable, chemistry unremarkable, and influenza negative. Chemistry nonspecific. ABG finally obtained after a couple of attempts, shows hypoxia. Patient had this resolved on oxygen, he is not normally on oxygen. He is not retaining CO2. Because of hypoxia, age, fever, persistent abnormal lung auscultation, intermittent tachypnea I discussed with family and recommend admission for suspected infectious pneumonia. Family states appreciation and agreement. Discussed with Dr. Martinez, patient accepted to telemetry full admission. - Vital Signs Vital signs: Temp Pulse Resp BP Pulse Ox 99.1 F 105 H 29 H 135/75 H 95 09/15/19 00:32 09/14/19 23:43 09/15/19 05:00 09/15/19 04:01 09/15/19 05:00 - Laboratory Result Diagrams: 09/15/19 01:55 09/15/19 01:55 Laboratory results interpreted by me: 09/15/19 09/15/19 09/15/19 01:55 01:55 01:55 RDW 14.4 H ABG pO2 ABG HCO3 Carbon Dioxide 31 H Creatinine 1.53 H Est GFR ( Amer) 54 L Est GFR (MDRD) Non-Af 45 L Glucose 134 H NT-Pro-B Natriuret Pep 867 H 09/15/19 03:10 RDW ABG pO2 73.9 L ABG HCO3 25.7 H Carbon Dioxide Creatinine Est GFR ( Amer) Est GFR (MDRD) Non-Af Glucose NT-Pro-B Natriuret Pep Discharge - Discharge Clinical Impression: Hypoxia, Wheezing, Productive cough Condition: Stable Disposition: ADMITTED INPATIENT Admitting Provider: Juan (Hospitalist) Unit Admitted: Telemetry
--- NOTE | 2019-09-15 02:20 | RADIOLOGY REPORT (SQ) ---
XR CHEST 1 VIEW EXAM DATE: 09/15/2019 1:13 AM LABEL OPERATOR HISTORY: Fever, cough, hypoxia. COMPARISON: 03/04/2019 FINDINGS: Query cardiomegaly with pulmonary vascular congestion. No focal consolidation is identified. No pleural effusions or pneumothorax. IMPRESSION: Pulmonary edema pattern without pleural effusions or focal consolidation.
[2019-09-15 02:37] LABS: ABSOLUTE LYMPHOCYTES (AUTO) 1.2 10^3/uL (0.5-4.7); ABSOLUTE MONOCYTES (AUTO) 0.9 10^3/uL (0.1-1.4); ABSOLUTE NEUT (AUTO) 5.8 10^3/uL (1.7-8.2); BASOPHILS % (AUTO) 0.3 % (0-2); EOSINOPHILS % (AUTO) 0.5 % (0-6); HEMATOCRIT 39.9 % (37.9-51.0); HEMOGLOBIN 13.6 g/dL (13.5-17.0); LYMPHOCYTES % (AUTO) 15.1 % (13-45); MEAN CORPUSCULAR VOLUME 91 fl (80-97); MONOCYTES % (AUTO) 11.4 % (3-13); PLATELET COUNT 199 10^3/uL (150-450); RED BLOOD COUNT 4.38 10^6/uL (4.35-5.55); RED CELL DISTRIBUTION WIDTH 14.4 % (11.5-14.0); SEGMENTED NEUTROPHILS % (AUTO) 72.7 % (42-78); TOTAL CELLS COUNTED % (AUTO) 100 %
[2019-09-15 02:43] LABS: A TYPE INFLUENZA AG NEGATIVE (NEGATIVE); B INFLUENZA AG NEGATIVE (NEGATIVE)
[2019-09-15 02:58] LABS: ALBUMIN 3.7 g/dL (3.5-5.0); ALKALINE PHOSPHATASE 61 U/L (38-126); ANION GAP 8 (5-19); ASPARTATE AMINO TRANSFERASE 29 U/L (17-59); BILIRUBIN,DIRECT 0.3 mg/dL (0.0-0.4); BILIRUBIN,TOTAL 0.6 mg/dL (0.2-1.3); BLOOD UREA NITROGEN 20 mg/dL (7-20); CALCIUM 9.5 mg/dL (8.4-10.2); CARBON DIOXIDE 31 mmol/L (22-30); CHLORIDE 99 mmol/L (98-107); GLUCOSE 134 mg/dL (75-110); POTASSIUM 4.3 mmol/L (3.6-5.0); TOTAL PROTEIN 7.2 g/dL (6.3-8.2)
[2019-09-15 03:32] LABS: ARTERIAL BLOOD BASE EXCESS 0.7 mmol/L; ARTERIAL BLOOD FIO2 3L; ARTERIAL BLOOD H2CO3 1.27 mmol/L (1.05-1.35); ARTERIAL BLOOD HCO3 25.7 mmol/L (20-24); ARTERIAL BLOOD O2 SATURATION 94.9 % (94-98); ARTERIAL BLOOD PCO2 42.2 mmHg (35-45); ARTERIAL BLOOD PO2 73.9 mmHg (80-100)
[2019-09-15] MEDS ORDERED: AZITHROMYCIN INJ 500 MG VIAL IV ONE (03:42)
[2019-09-15] MEDS ORDERED: CEFTRIAXONE 1 GM/D5W RTU 1 GM/50 ML RTUPB IV ONE (03:42)
[2019-09-15] MEDS ORDERED: FUROSEMIDE INJ/PF 20 MG/2 ML SDV IV ONE (04:14)
[2019-09-15] MEDS ORDERED: MAG HYDROX/AL HYDROX/SIMETH SUSP 30 ML UDCUP PO PRN (04:15)
[2019-09-15] MEDS ORDERED: MAGNESIUM HYDROXIDE SUSP 30 ML UDCUP PO PRN (04:15)
[2019-09-15] MEDS ORDERED: ACETAMINOPHEN 325 MG TABLET PO PRN (04:15)
[2019-09-15] MEDS ORDERED: DEXTROSE 40% GEL 15 GM TUBE PO PRN ×2 (04:19)
[2019-09-15] MEDS ORDERED: DEXTROSE 50%-WATER 25 GM/50 ML DISP.SYRIN IV PRN ×2 (04:19)
[2019-09-15] MEDS ORDERED: GLUCAGON,HUMAN RECOMB 1 MG INJ IM PRN (04:19)
[2019-09-15] MEDS ORDERED: HYDRALAZINE HCL INJ/PF 20 MG/1 ML SDV IV PRN (04:19)
[2019-09-15] MEDS ORDERED: CHLORPHENIRAMINE MALEATE 4 MG TABLET PO SCH (04:30)
[2019-09-15] MEDS ORDERED: HEPARIN SOD (PORCINE) 5,000 UNIT/ML 1 ML VIAL SUBCUT SCH (06:00)
[2019-09-15 06:04] LABS: APPEARANCE,URINE CLEAR; BILIRUBIN,URINE NEGATIVE (NEGATIVE); COLOR,URINE YELLOW; GLUCOSE, URINE NEGATIVE (NEGATIVE); KETONES,URINE NEGATIVE (NEGATIVE); LEUKOCYTE ESTERASE,URINE NEGATIVE (NEGATIVE); NITRITE,URINE NEGATIVE (NEGATIVE); PROTEIN,URINE NEGATIVE (NEGATIVE); URINE SPECIFIC GRAVITY 1.016; UROBILINOGEN,URINE NEGATIVE mg/dL (<2.0)
--- NOTE | 2019-09-15 06:40 | PDOC H&P ---
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 He presents with 7 days of shortness of breath and nonproductive cough for which he sought evaluation by primary care. He was diagnosed with bronchitis and started on doxycycline complicated by nausea adverse medication reaction, without improvement he is in the emergency department and found to have a rhonchorous cough of upper airway obstruction, pulmonary edema by imaging, tachycardia with elevated BNP. Patient is unaware of his current medication regiment. He denies chest pain, nausea or vomiting. Past Medical History Cardiac Medical History: Reports: Coronary Artery Disease - WITH STENT, Hyperlipidema Denies: Myocardial Infarction, Hypertension Pulmonary Medical History: Reports: Chronic Obstructive Pulmonary Disease (COPD) - DOES NOT WEAR O2 Denies: Asthma, Bronchitis, Pneumonia, Tuberculosis Neurological Medical History: Denies: Seizures Endocrine Medical History: Reports: Diabetes Mellitus Type 2 Musculoskeltal Medical History: Reports: Arthritis Psychiatric Medical History: Reports: Depression, Post Traumatic Stress Disorder Denies: Tobacco Dependency Hematology: Denies: Anemia Past Surgical History Past Surgical History: Reports: Cardiac Catheterization, Orthopedic Surgery - Bilat Knee Replacements Denies: Pacemaker Social History Information Source: Patient, [facility] Records Smoking Status: Never Smoker Frequency of Alcohol Use: Social Hx Recreational Drug Use: No Drugs: None Hx Prescription Drug Abuse: No - Advance Directive Resuscitation Status: Full Code Family History Family History: CAD Parental Family History Reviewed: Yes Children Family History Reviewed: Yes Sibling(s) Family History Reviewed.: Yes Medication/Allergy Home Medications: Brimonidine Tartrate [Alphagan 0.2% Oph Soln 5 ml] 1 drop OU TID 03/04/19 Celecoxib [Celebrex 200 mg Capsule] 200 mg PO DAILYP PRN 03/04/19 Clonazepam [Klonopin] 1 mg PO Q8 03/04/19 Clopidogrel Bisulfate [Plavix 75 mg Tablet] 75 mg PO QHS 03/04/19 Dextran 70/Hypromellose [Artificial Tears] 1 drop OU QID 03/04/19 Dorzolamide HCl [Trusopt Plus 2% Oph Soln 10 Ml] 1 drop OU BID 03/04/19 Epinephrine [Epipen] 0.3 mg IJ ASDIR PRN 03/04/19 Escitalopram Oxalate [Lexapro] 40 mg PO QHS 03/04/19 Glipizide [Glucotrol] 2.5 mg PO DAILY 03/04/19 Isosorbide Mononitrate [Imdur 60 mg Tablet.er] 60 mg PO DAILY 03/04/19 Lansoprazole [Prevacid] 30 mg PO QHS 03/04/19 Latanoprost [Xalatan 0.005% Oph Soln 2.5 ml] 1 drop OU QHS 03/04/19 Nitroglycerin [Nitrostat 0.4 mg (1/150 Gr) Tabs 25/Bottle] 1 tab SL Q5MP PRN 03/04/19 Prazosin HCl [Minipress] 1 mg PO QHS 03/04/19 Soft Lens Adjunctive Solutions [Lubricating Drops] 1 drop OU QHS 03/04/19 Trazodone HCl [Desyrel 50 mg Tablet] 75 mg PO QHS 03/04/19 Allergies/Adverse Reactions: iodine [Iodine] Allergy (Severe, Verified 05/02/17 10:05) pt has difficulty breathing bacitracin [Bacitracin] Allergy (Verified 05/02/17 10:05) Anaphylaxis omeprazole [Omeprazole] Allergy (Verified 05/02/17 10:05) pantoprazole [Pantoprazole] Allergy (Verified 05/02/17 10:05) shellfish derived Allergy (Verified 05/02/17 10:05) CREST TOOTHPASTE Allergy (Severe, Uncoded 05/02/17 10:05) shortness of breath, closses up throat dye Allergy (Severe, Uncoded 05/02/17 10:05) Shortness of Breath OPTHALIME Allergy (Uncoded 05/02/17 10:05) Review of Systems Constitutional: ABSENT: chills, fever(s), headache(s), weight gain, weight loss Eyes: ABSENT: visual disturbances Ears: ABSENT: hearing changes Cardiovascular: ABSENT: chest pain, dyspnea on exertion, edema, orthropnea, palpitations Respiratory: ABSENT: cough, hemoptysis Gastrointestinal: ABSENT: abdominal pain, constipation, diarrhea, hematemesis, hematochezia, nausea, vomiting Genitourinary: ABSENT: dysuria, hematuria Musculoskeletal: ABSENT: joint swelling Integumentary: ABSENT: rash, wounds Neurological: ABSENT: abnormal gait, abnormal speech, confusion, dizziness, focal weakness, syncope Psychiatric: ABSENT: anxiety, depression, homidical ideation, suicidal ideation Endocrine: ABSENT: cold intolerance, heat intolerance, polydipsia, polyuria Hematologic/Lymphatic: ABSENT: easy bleeding, easy bruising Physical Exam Vital Signs: Temp Pulse Resp BP Pulse Ox 99.1 F 105 H 29 H 135/75 H 95 09/15/19 00:32 09/14/19 23:43 09/15/19 05:00 09/15/19 04:01 09/15/19 05:00 Intake & Output 09/13/19 09/14/19 09/15/19 11:59 11:59 11:59 Intake Total 50 Balance 50 Weight 111.5 kg General appearance: PRESENT: cooperative, disheveled, mild distress, obese, well-developed, well-nourished Head exam: PRESENT: atraumatic, normocephalic Eye exam: PRESENT: conjunctiva pink, EOMI, PERRLA. ABSENT: scleral icterus Ear exam: PRESENT: normal external ear exam Mouth exam: PRESENT: moist, tongue midline Neck exam: ABSENT: carotid bruit, JVD, lymphadenopathy, thyromegaly Respiratory exam: PRESENT: accessory muscle use, crackles, rhonchi - Upper airway rhonchi, tachypnea. ABSENT: rales, wheezes Cardiovascular exam: PRESENT: RRR. ABSENT: diastolic murmur, rubs, systolic murmur Pulses: PRESENT: normal dorsalis pedis pul Vascular exam: PRESENT: normal capillary refill GI/Abdominal exam: PRESENT: normal bowel sounds, soft. ABSENT: distended, guarding, mass, organolmegaly, rebound, tenderness Rectal exam: PRESENT: deferred Extremities exam: PRESENT: full ROM. ABSENT: calf tenderness, clubbing, pedal edema Neurological exam: PRESENT: alert, awake, oriented to person, oriented to place, oriented to time, oriented to situation, CN II-XII grossly intact. ABSENT: motor sensory deficit Psychiatric exam: PRESENT: appropriate affect, normal mood. ABSENT: homicidal ideation, suicidal ideation Skin exam: PRESENT: dry, intact, warm. ABSENT: cyanosis, rash Results Laboratory Results: 09/15/19 01:55 09/15/19 01:55 09/15/19 09/15/19 09/15/19 01:55 01:55 03:10 WBC 8.0 RBC 4.38 Hgb 13.6 Hct 39.9 MCV 91 MCH 31.0 MCHC 34.0 RDW 14.4 H Plt Count 199 Seg Neutrophils % 72.7 Carbonic Acid 1.27 HCO3/H2CO3 Ratio 20:1 ABG pH 7.40 ABG pCO2 42.2 ABG pO2 73.9 L ABG HCO3 25.7 H ABG O2 Saturation 94.9 ABG Base Excess 0.7 FiO2 3L Sodium 138.4 Potassium 4.3 Chloride 99 Carbon Dioxide 31 H Anion Gap 8 BUN 20 Creatinine 1.53 H Est GFR ( Amer) 54 L Glucose 134 H Calcium 9.5 Total Bilirubin 0.6 AST 29 Alkaline Phosphatase 61 Total Protein 7.2 Albumin 3.7 Urine Color Urine Appearance Urine pH Ur Specific Angier Urine Protein Urine Glucose (UA) Urine Ketones Urine Blood Urine Nitrite Ur Leukocyte Esterase Urine WBC (Auto) Urine RBC (Auto) 09/15/19 05:20 WBC RBC Hgb Hct MCV MCH MCHC RDW Plt Count Seg Neutrophils % Carbonic Acid HCO3/H2CO3 Ratio ABG pH ABG pCO2 ABG pO2 ABG HCO3 ABG O2 Saturation ABG Base Excess FiO2 Sodium Potassium Chloride Carbon Dioxide Anion Gap BUN Creatinine Est GFR ( Amer) Glucose Calcium Total Bilirubin AST Alkaline Phosphatase Total Protein Albumin Urine Color YELLOW Urine Appearance CLEAR Urine pH 5.0 Ur Specific Angier 1.016 Urine Protein NEGATIVE Urine Glucose (UA) NEGATIVE Urine Ketones NEGATIVE Urine Blood NEGATIVE Urine Nitrite NEGATIVE Ur Leukocyte Esterase NEGATIVE Urine WBC (Auto) 3 Urine RBC (Auto) 1 09/15/19 09/15/19 09/15/19 01:55 01:55 05:10 Troponin I 0.035 0.024 NT-Pro-B Natriuret Pep 867 H Impressions: Chest X-Ray 09/15/19 01:13 IMPRESSION: Pulmonary edema pattern without pleural effusions or focal consolidation. Assessment and Plan - Diagnosis (1) Bronchitis Is this a current diagnosis for this admission?: Yes Plan: Flonase, supplemental oxygen, empiric antibiotic (2) LUANN (obstructive sleep apnea) Is this a current diagnosis for this admission?: Yes Plan: Intolerant of BiPAP, avoid sedating medication (3) PTSD (post-traumatic stress disorder) Is this a current diagnosis for this admission?: Yes Plan: Supportive care (4) Diabetes mellitus type 2 in obese Is this a current diagnosis for this admission?: Yes Plan: Humalog sliding scale with meals (5) Diastolic CHF Is this a current diagnosis for this admission?: Yes Plan: Optimize heart rate, pressure and volume
[2019-09-15] MEDS ORDERED: METOPROLOL TARTRATE 25 MG TABLET PO ONE ×2 (06:45→10:45)
[2019-09-15] MEDS: INSULIN LISPRO 100 UNIT/ML 3 ML VIAL SUBCUT SCH ×3 (09:57→18:07)
[2019-09-15] MEDS ORDERED: ASPIRIN 81 MG TABLET, ENT COATED PO SCH (10:00)
[2019-09-15] MEDS: DOCUSATE SODIUM 100 MG CAPSULE PO SCH (10:02)
[2019-09-15] MEDS: POTASSIUM CHLORIDE 10 MEQ TABLET.ER PO SCH (10:03)
[2019-09-15] MEDS: FUROSEMIDE 40 MG TABLET PO SCH (10:03)
[2019-09-15] MEDS: LEVOFLOXACIN 500 MG/D5W RTU 500 MG/100 ML RTUPB IV SCH (10:04)
[2019-09-15] MEDS: NITROGLYCERIN 5 MG (0.2 MG/HR) PATCH.TD24 TD SCH (10:11)
[2019-09-15] MEDS ORDERED: IPRATROPIUM/ALBUTEROL 0.5-2.5 MG/3 ML AMPUL NEB PRN (12:28)
[2019-09-15] MEDS ORDERED: GUAIFENESIN/D-METHORPHAN (200-20 MG) SYRUP 10 ML PO PRN (12:30)
[2019-09-15] MEDS: FLUTICASONE NASAL SPRAY 50 MCG/SPRY 120 SPRAY/16 GM NASL SCH ×2 (12:36→21:30)
[2019-09-15] MEDS: ALBUTEROL SULFATE 0.042% NEB (1.25 MG/3 ML) AMPUL NEB SCH ×2 (14:46→21:20)
[2019-09-15] MEDS: GLIPIZIDE 5 MG TABLET PO SCH (15:15)
[2019-09-15] MEDS: FLUTICASONE/VILANTEROL 100-25 MCG/DOSE IH SCH (15:17)
[2019-09-15] MEDS: APIXABAN 5 MG TABLET PO SCH (18:10)
--- NOTE | 2019-09-15 18:34 | EKG REPORT ---
SEVERITY:- ABNORMAL ECG - SINUS RHYTHM PROBABLE INFERIOR INFARCT, AGE INDETERMINATE CONSIDER ANTERIOR INFARCT : Confirmed by: Clara Stein MD 15-Sep-2019 18:32:40
[2019-09-15] MEDS: METOPROLOL TARTRATE 25 MG TABLET PO SCH (21:30)
[2019-09-15] MEDS: TRAZODONE HCL 50 MG TABLET PO SCH (21:31)
[2019-09-15] MEDS: CLOPIDOGREL BISULFATE 75 MG TABLET PO SCH (21:31)
[2019-09-15] MEDS ORDERED: (PENDING PHARMACY ID) (Prazosin Hcl [Minipress] 1 MG) PO SCH (22:00)
[2019-09-16 05:40] LABS: ABSOLUTE BASOPHILS # (AUTO) 0.1 10^3/uL (0.0-0.2); ABSOLUTE LYMPHOCYTES (AUTO) 0.8 10^3/uL (0.5-4.7); ABSOLUTE NEUT (AUTO) 10.5 10^3/uL (1.7-8.2); BASOPHILS % (AUTO) 0.5 % (0-2); EOSINOPHILS % (AUTO) 0.1 % (0-6); HEMATOCRIT 41.3 % (37.9-51.0); HEMOGLOBIN 14.1 g/dL (13.5-17.0); LYMPHOCYTES % (AUTO) 6.8 % (13-45); MEAN CORPUSCULAR HGB CONC 34.1 g/dL (32.0-36.0); MEAN CORPUSCULAR VOLUME 91 fl (80-97); MONOCYTES % (AUTO) 8.2 % (3-13); PLATELET COUNT 214 10^3/uL (150-450); RED BLOOD COUNT 4.54 10^6/uL (4.35-5.55); RED CELL DISTRIBUTION WIDTH 14.5 % (11.5-14.0); SEGMENTED NEUTROPHILS % (AUTO) 84.4 % (42-78); TOTAL CELLS COUNTED % (AUTO) 100 %; WHITE BLOOD COUNT 12.5 10^3/uL (4.0-10.5)
[2019-09-16 05:59] LABS: ANION GAP 11 (5-19); BLOOD UREA NITROGEN 33 mg/dL (7-20); CALCIUM 9.1 mg/dL (8.4-10.2); CARBON DIOXIDE 28 mmol/L (22-30); CHLORIDE 99 mmol/L (98-107); GLUCOSE 128 mg/dL (75-110); POTASSIUM 4.6 mmol/L (3.6-5.0)
[2019-09-16] MEDS: INSULIN LISPRO 100 UNIT/ML 3 ML VIAL SUBCUT SCH ×3 (07:46→17:50)
[2019-09-16] MEDS: GLIPIZIDE 5 MG TABLET PO SCH (07:47)
[2019-09-16] MEDS: CLONAZEPAM 1 MG TABLET PO SCH (07:48)
[2019-09-16] MEDS: ALBUTEROL SULFATE 0.042% NEB (1.25 MG/3 ML) AMPUL NEB SCH ×3 (08:42→19:35)
[2019-09-16] MEDS: FLUTICASONE/VILANTEROL 100-25 MCG/DOSE IH SCH (09:56)
[2019-09-16] MEDS: LEVOFLOXACIN 500 MG/D5W RTU 500 MG/100 ML RTUPB IV SCH (09:56)
[2019-09-16] MEDS: DOCUSATE SODIUM 100 MG CAPSULE PO SCH (09:58)
[2019-09-16] MEDS: FUROSEMIDE 40 MG TABLET PO SCH (09:59)
[2019-09-16] MEDS: POTASSIUM CHLORIDE 10 MEQ TABLET.ER PO SCH (10:04)
[2019-09-16] MEDS: METOPROLOL TARTRATE 25 MG TABLET PO SCH ×2 (10:04→21:49)
[2019-09-16] MEDS: AMLODIPINE BESYLATE 5 MG TABLET PO SCH (10:04)
[2019-09-16] MEDS: FLUTICASONE NASAL SPRAY 50 MCG/SPRY 120 SPRAY/16 GM NASL SCH ×2 (10:05→21:51)
[2019-09-16] MEDS: APIXABAN 5 MG TABLET PO SCH ×2 (10:05→17:55)
[2019-09-16] MEDS: NITROGLYCERIN 5 MG (0.2 MG/HR) PATCH.TD24 TD SCH (10:05)
--- NOTE | 2019-09-16 15:11 | PDOC PROGRESS REPORT ---
Subjective Progress Note for:: 09/16/19 Subjective:: Patient states that he is breathing a lot better today. Also states that cough is significantly improved today. Denies any chest pain at this moment. Patient adamantly refuses to wear any sort of facemask including CPAP mask and simple mask. Pt is okay with using nasal cannula. Reason For Visit: LUANN,COPD,BRONCHITIS,DM HEART FAILURE Physical Exam Vital Signs: Temp Pulse Resp BP Pulse Ox 97.3 F 80 21 H 144/65 H 94 09/16/19 12:00 09/16/19 13:49 09/16/19 13:49 09/16/19 12:00 09/16/19 13:49 Intake & Output 09/15/19 09/16/19 09/17/19 06:59 06:59 06:59 Intake Total 50 1320 200 Balance 50 1320 200 Weight 110.8 kg 112.4 kg General appearance: PRESENT: no acute distress, cooperative Neck exam: ABSENT: JVD Respiratory exam: PRESENT: rhonchi, symmetrical. ABSENT: tachypnea, wheezes Cardiovascular exam: PRESENT: RRR, +S1, +S2. ABSENT: tachycardia GI/Abdominal exam: PRESENT: normal bowel sounds, soft. ABSENT: rebound, rigid, tenderness Extremities exam: PRESENT: pedal edema - trace bilateral Neurological exam: PRESENT: alert, awake, oriented to person, oriented to place, oriented to time, oriented to situation Results Laboratory Results: 09/16/19 05:22 09/16/19 05:22 09/16/19 09/16/19 05:22 05:22 WBC 12.5 H RBC 4.54 Hgb 14.1 Hct 41.3 MCV 91 MCH 31.0 MCHC 34.1 RDW 14.5 H Plt Count 214 Seg Neutrophils % 84.4 H Sodium 138.0 Potassium 4.6 Chloride 99 Carbon Dioxide 28 Anion Gap 11 BUN 33 H Creatinine 1.41 H Est GFR ( Amer) > 60 Glucose 128 H Calcium 9.1 09/15/19 09/15/19 09/15/19 01:55 01:55 05:10 Troponin I 0.035 0.024 NT-Pro-B Natriuret Pep 867 H 09/15/19 09/15/19 11:12 16:45 Troponin I 0.014 0.017 NT-Pro-B Natriuret Pep Impressions: Chest X-Ray 09/15/19 01:13 IMPRESSION: Pulmonary edema pattern without pleural effusions or focal consolidation. Assessment and Plan - Diagnosis (1) Chronic bronchitis with acute exacerbation Is this a current diagnosis for this admission?: Yes Plan: Mild exacerbation is improved. Patient receiving empiric antibiotics with Levaquin started on admission but will d/c tomorrow. Flutter valve, neb treatments. Received steroids on admission but there is no need to continue this at this time as breathing has improved and no wheezing. CXR is clear. (2) Acute and chronic respiratory failure with hypoxia Is this a current diagnosis for this admission?: Yes Plan: Patient's respiratory failure is mostly chronic may be mildly exacerbated by his mild diastolic CHF which has been adequately treated at this point. Patient's bronchitis is also been adequately treated at this point and his symptoms have improved. However patient's remains hypoxic with SPO2 of 88 to 90% on 4 L nasal cannula. Believe patient will require oxygen upon discharge as his hypoxia is mostly chronic. I do not believe that an acute exacerbation of bronchitis would cause such significant hypoxia. (3) Acute diastolic heart failure Is this a current diagnosis for this admission?: Yes Plan: Mild. Continue Lasix and Lopressor. Optimize blood pressure with amlodipine. Check echocardiogram. (4) LUANN (obstructive sleep apnea) Is this a current diagnosis for this admission?: Yes Plan: Patient has refused to wear CPAP/BiPAP/any sort of facial mask and is only agreeable to nasal cannula. Has history of LUANN and CPAP at home which he does not use. We will continue nasal cannula. (5) PTSD (post-traumatic stress disorder) Is this a current diagnosis for this admission?: Yes Plan: Supportive care (6) Diabetes mellitus type 2 in obese Is this a current diagnosis for this admission?: Yes Plan: Humalog sliding scale, glipizide with meals - Time Time Spent with patient: Less than 15 minutes
[2019-09-16] MEDS: ESCITALOPRAM OXALATE 10 MG TABLET PO SCH (17:55)
[2019-09-16] MEDS: CLOPIDOGREL BISULFATE 75 MG TABLET PO SCH (21:49)
[2019-09-16] MEDS: TRAZODONE HCL 50 MG TABLET PO SCH (21:51)
[2019-09-17] MEDS: CLONAZEPAM 1 MG TABLET PO SCH (07:31)
[2019-09-17] MEDS: INSULIN LISPRO 100 UNIT/ML 3 ML VIAL SUBCUT SCH ×3 (07:32→17:09)
[2019-09-17] MEDS: GLIPIZIDE 5 MG TABLET PO SCH (07:32)
[2019-09-17] MEDS: ALBUTEROL SULFATE 0.042% NEB (1.25 MG/3 ML) AMPUL NEB SCH ×3 (08:31→20:34)
[2019-09-17 09:20] LABS: ABSOLUTE LYMPHOCYTES (AUTO) 0.8 10^3/uL (0.5-4.7); ABSOLUTE MONOCYTES (AUTO) 0.6 10^3/uL (0.1-1.4); ABSOLUTE NEUT (AUTO) 6.6 10^3/uL (1.7-8.2); BASOPHILS % (AUTO) 0.2 % (0-2); EOSINOPHILS % (AUTO) 0.2 % (0-6); HEMATOCRIT 40.8 % (37.9-51.0); HEMOGLOBIN 13.8 g/dL (13.5-17.0); LYMPHOCYTES % (AUTO) 10.2 % (13-45); MEAN CORPUSCULAR HEMOGLOBIN 30.6 pg (27.0-33.4); MEAN CORPUSCULAR HGB CONC 33.7 g/dL (32.0-36.0); MEAN CORPUSCULAR VOLUME 91 fl (80-97); MONOCYTES % (AUTO) 7.7 % (3-13); PLATELET COUNT 225 10^3/uL (150-450); RED BLOOD COUNT 4.49 10^6/uL (4.35-5.55); RED CELL DISTRIBUTION WIDTH 14.6 % (11.5-14.0); SEGMENTED NEUTROPHILS % (AUTO) 81.7 % (42-78); TOTAL CELLS COUNTED % (AUTO) 100 %; WHITE BLOOD COUNT 8.1 10^3/uL (4.0-10.5)
[2019-09-17] MEDS: FLUTICASONE/VILANTEROL 100-25 MCG/DOSE IH SCH (09:26)
[2019-09-17] MEDS: POTASSIUM CHLORIDE 10 MEQ TABLET.ER PO SCH (09:27)
[2019-09-17] MEDS: FUROSEMIDE 40 MG TABLET PO SCH (09:27)
[2019-09-17] MEDS: APIXABAN 5 MG TABLET PO SCH ×2 (09:27→17:15)
[2019-09-17] MEDS: METOPROLOL TARTRATE 25 MG TABLET PO SCH ×2 (09:27→22:25)
[2019-09-17] MEDS: AMLODIPINE BESYLATE 5 MG TABLET PO SCH (09:28)
[2019-09-17] MEDS: FLUTICASONE NASAL SPRAY 50 MCG/SPRY 120 SPRAY/16 GM NASL SCH ×2 (09:28→22:25)
[2019-09-17] MEDS: NITROGLYCERIN 5 MG (0.2 MG/HR) PATCH.TD24 TD SCH (09:28)
[2019-09-17] MEDS: DOCUSATE SODIUM 100 MG CAPSULE PO SCH (09:28)
[2019-09-17] MEDS: LEVOFLOXACIN 500 MG TABLET PO SCH (09:36)
[2019-09-17 09:39] LABS: ANION GAP 10 (5-19); BLOOD UREA NITROGEN 31 mg/dL (7-20); CALCIUM 8.4 mg/dL (8.4-10.2); CARBON DIOXIDE 30 mmol/L (22-30); CHLORIDE 96 mmol/L (98-107); GLUCOSE 137 mg/dL (75-110); POTASSIUM 4.1 mmol/L (3.6-5.0)
--- NOTE | 2019-09-17 14:00 | PDOC PROGRESS REPORT ---
Subjective Progress Note for:: 09/17/19 Subjective:: Patient endorses feeling a lot better today. His cough has improved significantly. Denies any shortness of breath currently denies chest pain. Reason For Visit: LUANN,COPD,BRONCHITIS,DM HEART FAILURE Physical Exam Vital Signs: Temp Pulse Resp BP Pulse Ox 97.7 F 73 19 142/72 H 92 09/17/19 11:00 09/17/19 11:00 09/17/19 11:00 09/17/19 11:00 09/17/19 11:00 Intake & Output 09/16/19 09/17/19 09/18/19 06:59 06:59 06:59 Intake Total 1320 230 120 Balance 1320 230 120 Weight 112.4 kg 110.4 kg General appearance: PRESENT: no acute distress, cooperative Neck exam: ABSENT: JVD Respiratory exam: PRESENT: rhonchi, symmetrical, unlabored. ABSENT: rales, tachypnea, wheezes Cardiovascular exam: PRESENT: RRR, +S1, +S2. ABSENT: tachycardia Neurological exam: PRESENT: alert, awake, oriented to person, oriented to place, oriented to time, oriented to situation Results Laboratory Results: 09/17/19 08:41 09/17/19 08:41 09/17/19 09/17/19 08:41 08:41 WBC 8.1 RBC 4.49 Hgb 13.8 Hct 40.8 MCV 91 MCH 30.6 MCHC 33.7 RDW 14.6 H Plt Count 225 Seg Neutrophils % 81.7 H Sodium 136.4 L Potassium 4.1 Chloride 96 L Carbon Dioxide 30 Anion Gap 10 BUN 31 H Creatinine 1.29 H Est GFR ( Amer) > 60 Glucose 137 H Calcium 8.4 09/15/19 09/15/19 09/15/19 01:55 01:55 05:10 Troponin I 0.035 0.024 NT-Pro-B Natriuret Pep 867 H 09/15/19 09/15/19 11:12 16:45 Troponin I 0.014 0.017 NT-Pro-B Natriuret Pep Impressions: Chest X-Ray 09/15/19 01:13 IMPRESSION: Pulmonary edema pattern without pleural effusions or focal consolidation. Assessment and Plan - Diagnosis (1) Chronic bronchitis with acute exacerbation Is this a current diagnosis for this admission?: Yes Plan: Mild exacerbation has improved significantly. Patient not coughing anywhere close to as much as he was on initial encounter. Patient receiving empiric antibiotics with Levaquin started on admission but will d/c tomorrow. Today is day 3. Flutter valve, neb treatments. Received steroids on admission but there is no need to continue as breathing has improved and he has had no wheezing. (2) Acute and chronic respiratory failure with hypoxia Is this a current diagnosis for this admission?: Yes Plan: Patient's respiratory failure is mostly chronic may be mildly exacerbated by his mild diastolic CHF and bronchitis which have been adequately treated at this point with significant improvement in symptoms. Attempting to wean patient off nasal cannula. Patient was requiring 4 to 6 L nasal cannula 3 days ago but now maintaining sats above 90 on 2 L nasal cannula. Will attempt to see to wean to room air. (3) Acute diastolic heart failure Is this a current diagnosis for this admission?: Yes Plan: Continue Lasix [dose reduced to 20 mg daily today given elevation of bicarb] and Lopressor. Optimize blood pressure with amlodipine. Awaiting results of echocardiogram. (4) LUANN (obstructive sleep apnea) Is this a current diagnosis for this admission?: Yes Plan: Patient has refused to wear CPAP/BiPAP/any sort of facial mask and is only agreeable to nasal cannula. Has history of LUANN and returned CPAP because he c ould not use it. We will perform overnight trending pulse ox now acute respiratory failure has improved to see if patient meets qualifications for nocturnal home O2 via nasal cannula. (5) PTSD (post-traumatic stress disorder) Is this a current diagnosis for this admission?: Yes (6) Diabetes mellitus type 2 in obese Is this a current diagnosis for this admission?: Yes Plan: Humalog sliding scale, glipizide with meals - Time Time Spent with patient: Less than 15 minutes
[2019-09-17] MEDS: ESCITALOPRAM OXALATE 10 MG TABLET PO SCH (17:15)
--- NOTE | 2019-09-17 19:13 | XCELERA REPORT ---
[address] [address] Transthoracic Echocardiogram Report Name: SHANNAN CRENSHAW Age: 73 yrs Gender: Male : 1945 Patient Status: Inpatient Patient Location: [facility]^A Study Date: 09/17/2019 11:20 AM Height: 71 in Weight: 247 lb BSA: 2.3 m2 Reason For Study: chf Ordering Physician: EMRE SCOTT Performed By: Marjorie Bee Interpretation Summary Very poor study with no visulalisation of the apical 2 chamber view and poor visualisation ot the PLAX and SAX views. Only a few observation can be made. The aortic root is normal size, AV cannot be assessed ? 3 cusps, but peak AV velocituy doesnot suggest , no AR, Mild MAC with no MS, no MVP, and no MR and LA doenot appear enlarged. Mild concentric LVH with Probably normal LVEF per PLAX, not based on Apical views. LV diastolic dysfunction-I . LVEF is mod enlarged, LVESD 45 mm. Incomplete LV segmental analysis, see pictorals. TVannulus is calcified, unable to see TR and sampled , makes estimation of PASP impossible. RA, RV appears not enlarged. Summary ; Limited information from this echo due to absence of apical views.see above, and pictorals. MMode/2D Measurements & Calculations RVDd: 2.6 cm LVIDd: 5.2 cm FS: 27.7 % Ao root diam: 3.2 cm IVSd: 1.1 cm LVIDs: 3.8 cm EDV(Teich): 130.3 ml LVPWd: 1.1 cm ESV(Teich): 60.7 ml Ao root area: 8.1 cm2 LA dimension: 3.1 cm EF(Teich): 53.4 % Doppler Measurements & Calculations MV E max otto: MV P1/2t max otto: Ao V2 max: LV V1 max P.9 cm/sec 76.9 cm/sec 132.7 cm/sec 2.8 mmHg MV A max otto: MV P1/2t: 49.4 msec Ao max PG: LV V1 max: 95.8 cm/sec MVA(P1/2t): 4.5 cm2 7.0 mmHg 82.9 cm/sec MV E/A: 0.52 MV dec slope: 456.3 cm/sec2 MV dec time: 0.25 sec PA V2 max: MV P1/2t-pr_phl: 89.0 cm/sec 49.4 msec PA max P.2 mmHg I WMSI = 2.20 % Normal = 0 Segments Size X - Cannot 2 - 4 - 1-2 small Interpret 1 - Normal Hypokinetic 3 - AkineticDyskinetic 3-5 moderate 5 - 6-14 large Aneurysmal 15-16 diffuse : EMRE SCOTT Andre
[2019-09-17] MEDS: CLOPIDOGREL BISULFATE 75 MG TABLET PO SCH (22:25)
[2019-09-18] MEDS: TRAZODONE HCL 50 MG TABLET PO SCH (03:54)
[2019-09-18 06:56] LABS: ANION GAP 13 (5-19); BLOOD UREA NITROGEN 34 mg/dL (7-20); CALCIUM 9.3 mg/dL (8.4-10.2); CARBON DIOXIDE 30 mmol/L (22-30); CHLORIDE 95 mmol/L (98-107); GLUCOSE 117 mg/dL (75-110); POTASSIUM 4.8 mmol/L (3.6-5.0)
[2019-09-18] MEDS: ALBUTEROL SULFATE 0.042% NEB (1.25 MG/3 ML) AMPUL NEB SCH ×2 (07:46→14:05)
[2019-09-18 08:21] VITALS: BP 140/76
[2019-09-18] MEDS: INSULIN LISPRO 100 UNIT/ML 3 ML VIAL SUBCUT SCH ×2 (08:46→11:43)
[2019-09-18] MEDS: CLONAZEPAM 1 MG TABLET PO SCH (09:00)
[2019-09-18] MEDS: GLIPIZIDE 5 MG TABLET PO SCH (09:01)
[2019-09-18] MEDS ORDERED: FUROSEMIDE 20 MG TABLET PO SCH (10:00)
[2019-09-18] MEDS ORDERED: FUROSEMIDE 40 MG TABLET PO SCH (10:00)
[2019-09-18] MEDS: NITROGLYCERIN 5 MG (0.2 MG/HR) PATCH.TD24 TD SCH (11:41)
[2019-09-18] MEDS: FLUTICASONE/VILANTEROL 100-25 MCG/DOSE IH SCH (11:42)
[2019-09-18] MEDS: DOCUSATE SODIUM 100 MG CAPSULE PO SCH (11:42)
[2019-09-18] MEDS: APIXABAN 5 MG TABLET PO SCH (11:42)
[2019-09-18] MEDS: LEVOFLOXACIN 500 MG TABLET PO SCH (11:42)
[2019-09-18] MEDS: POTASSIUM CHLORIDE 10 MEQ TABLET.ER PO SCH (11:42)
[2019-09-18] MEDS: METOPROLOL TARTRATE 25 MG TABLET PO SCH (11:42)
[2019-09-18] MEDS: AMLODIPINE BESYLATE 5 MG TABLET PO SCH (11:42)
[2019-09-18] MEDS: FLUTICASONE NASAL SPRAY 50 MCG/SPRY 120 SPRAY/16 GM NASL SCH (11:43)
--- NOTE | 2019-09-18 12:05 | PDOC DISCHARGE SUMMARY ---
Impression - Admit/DC Date/PCP Admission Date/Primary Care Provider: 09/15/19 04:25 ROSALES DIALLO NP Discharge Date: 09/18/19 - Discharge Diagnosis (1) Acute and chronic respiratory failure with hypoxia Is this a current diagnosis for this admission?: Yes (2) Acute diastolic heart failure Is this a current diagnosis for this admission?: Yes (3) Chronic bronchitis with acute exacerbation Is this a current diagnosis for this admission?: Yes (4) LUANN (obstructive sleep apnea) Is this a current diagnosis for this admission?: Yes (5) PTSD (post-traumatic stress disorder) Is this a current diagnosis for this admission?: Yes (6) Diabetes mellitus type 2 in obese Is this a current diagnosis for this admission?: Yes - Additional Information Resuscitation Status: Full Code Discharge Diet: As Tolerated Discharge Activity: Activity As Tolerated Referrals: ROSALES DIALLO VARITYPE OPERATOR [Primary Care Provider] - Follow up as needed Prescriptions: Ipratropium/Albuterol Sulfate [Duoneb 3 ml Ampul] 3 ml NEB RTQ6HP PRN #90 vial.neb PRN Reason: Furosemide [Lasix 20 mg Tablet] 20 mg PO DAILY #30 tablet Levofloxacin [Levaquin 500 mg Tablet] 500 mg PO DAILY #3 tablet Metoprolol Tartrate [Lopressor 25 mg Tablet] 25 mg PO Q12 #60 tablet Amlodipine Besylate [Norvasc 5 mg Tablet] 5 mg PO DAILY #30 tablet Guaifenesin/D-Methorphan Hb [Robitussin-Dm Syrup 10 ml Udcup] 10 ml PO QIDP PRN #360 ml PRN Reason: Albuterol Sulfate [Ventolin 0.083% Neb 2.5 mg/3 mL Ampul] 1 vial NEB Q4 PRN #90 vial PRN Reason: Home Medications: Clonazepam [Klonopin] 2 mg PO QAM 03/04/19 Clopidogrel Bisulfate [Plavix 75 mg Tablet] 75 mg PO QHS 03/04/19 Escitalopram Oxalate [Lexapro] 40 mg PO QHS 03/04/19 Nitroglycerin [Nitrostat 0.4 mg (1/150 Gr) Tabs 25/Bottle] 1 tab SL Q5MP PRN 03/04/19 Prazosin HCl [Minipress] 1 mg PO QHS 03/04/19 Apixaban [Eliquis 5 mg Tablet] 5 mg PO BID 01/19/20 Fluticasone/Salmeterol [Advair 250-50 Diskus 14 Dose/Diskus] 1 inh IH Q12 09/15/19 Glipizide [Glucotrol 5 mg Tablet] 2.5 mg PO QAM 09/15/19 Vit A/Vit C/Vit E/Zinc/Copper [Preservision Areds Softgel] 1 each PO BID 09/15/19 Acetaminophen [Tylenol 325 mg Tablet] 650 mg PO Q4HP PRN tablet 09/18/19 Albuterol Sulfate [Ventolin 0.083% Neb 2.5 mg/3 mL Ampul] 1 vial NEB Q4 PRN #90 vial 09/18/19 Amlodipine Besylate [Norvasc 5 mg Tablet] 5 mg PO DAILY #30 tablet 09/18/19 Furosemide [Lasix 20 mg Tablet] 20 mg PO DAILY #30 tablet 09/18/19 Guaifenesin/D-Methorphan Hb [Robitussin-Dm Syrup 10 ml Udcup] 10 ml PO QIDP PRN #360 ml 09/18/19 Ipratropium/Albuterol Sulfate [Duoneb 3 ml Ampul] 3 ml NEB RTQ6HP PRN #90 vial.neb 09/18/19 Levofloxacin [Levaquin 500 mg Tablet] 500 mg PO DAILY #3 tablet 09/18/19 Metoprolol Tartrate [Lopressor 25 mg Tablet] 25 mg PO Q12 #60 tablet 09/18/19 Additional Information: Patient will require home oxygen History of Present Illiness History of Present Illness: SHANNAN CRENSHAW is a 73 year old male with a past medical history of diabetes, coronary artery disease with stenting, COPD without home oxygen, bladder cancer in remission, 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 He presents with 7 days of shortness of breath and nonproductive cough for which he sought evaluation by primary care. He was diagnosed with bronchitis and started on doxycycline complicated by nausea adverse medication reaction, without improvement he is in the emergency department and found to have a rhonchorous cough of upper airway obstruction, pulmonary edema by imaging, tachycardia with elevated BNP. Patient is unaware of his current medication regiment. He denies chest pain, nausea or vomiting. Hospital Course Hospital Course: (1) Chronic bronchitis with acute exacerbation Mild exacerbation has improved significantly. Patient not coughing anywhere close to as much as he was on initial encounter. Patient receiving empiric antibiotics with Levaquin started on admission and will finish course outpatient. Patient received flutter valve, neb treatments. Received steroids on admission but discontinued. Patient will be discharged on inhaled treatments. (2) Acute and chronic respiratory failure with hypoxia Patient's respiratory failure is mostly chronic may be mildly exacerbated by his mild diastolic CHF and bronchitis which have been adequately treated at this point with significant improvement in symptoms. Attempting to wean patient off nasal cannula. Patient was requiring 4 to 6 L nasal cannula early on admission. We were able to wean him 2 L of nasal cannula oxygen. He is in a stable steady state now and will require oxygen on discharge. (3) Acute diastolic heart failure Continue Lasix and Lopressor. Optimize blood pressure with amlodipine. Echocardiogram shows normal EF. (4) LUANN (obstructive sleep apnea) Patient has refused to wear CPAP/BiPAP/any sort of facial mask and is only agreeable to nasal cannula. Has history of LUANN and returned CPAP because he could not use it. Will need to follow-up outpatient (5) PTSD (post-traumatic stress disorder) (6) Diabetes mellitus type 2 in obese Resume home meds on discharge Physical Exam Vital Signs: Temp Pulse Resp BP Pulse Ox 97.6 F 80 20 140/76 H 96 09/18/19 08:00 09/18/19 08:00 09/18/19 08:00 09/18/19 08:00 09/18/19 08:00 Pulse Oximeter Nocturnal Start: 09/17/19 21:00 Freq: ALYSIA Status: Active Protocol: Document 09/18/19 04:10 DBE (Rec: 09/18/19 06:29 DBE [id number]) Nocturnal Pulse Oximetry Equipment Usage Equipment in Use Oxygen Delivery Method (includes room Nasal Cannula air) O2 Sat by Pulse Oximetry (92-100) 92 Continuous Pulse Oximeter Set Up No Continuous SpO2 Discontinued No Continuous SpO2 Machine # [id number] Intake & Output 09/17/19 09/18/19 09/19/19 06:59 06:59 06:59 Intake Total 230 580 Balance 230 580 Weight 243 lb 6.245 oz 243 lb 6.245 oz Exam: Patient is no acute distress Alert oriented to time place person No anxiety or depression Head: atraumatic normocephalic Pupils: are equal reactive Heart: Regular rate and rhythm Lungs: Scattered rhonchi bilaterally, no acute distress Abdomen: nontender nondistended Neurological exam: unremarkable Results Laboratory Results: WBC 8.1 10^3/uL (4.0-10.5) 09/17/19 08:41 RBC 4.49 10^6/uL (4.35-5.55) 09/17/19 08:41 Hgb 13.8 g/dL (13.5-17.0) 09/17/19 08:41 Hct 40.8 % (37.9-51.0) 09/17/19 08:41 MCV 91 fl (80-97) 09/17/19 08:41 MCH 30.6 pg (27.0-33.4) 09/17/19 08:41 MCHC 33.7 g/dL (32.0-36.0) 09/17/19 08:41 RDW 14.6 % (11.5-14.0) H 09/17/19 08:41 Plt Count 225 10^3/uL (150-450) 09/17/19 08:41 Lymph % (Auto) 10.2 % (13-45) L 09/17/19 08:41 Delta % (Auto) 7.7 % (3-13) 09/17/19 08:41 Eos % (Auto) 0.2 % (0-6) 09/17/19 08:41 Baso % (Auto) 0.2 % (0-2) 09/17/19 08:41 Absolute Neuts (auto) 6.6 10^3/uL (1.7-8.2) 09/17/19 08:41 Absolute Lymphs (auto) 0.8 10^3/uL (0.5-4.7) 09/17/19 08:41 Absolute Monos (auto) 0.6 10^3/uL (0.1-1.4) 09/17/19 08:41 Absolute Eos (auto) 0.0 10^3/uL (0.0-0.6) 09/17/19 08:41 Absolute Basos (auto) 0.0 10^3/uL (0.0-0.2) 09/17/19 08:41 Seg Neutrophils % 81.7 % (42-78) H 09/17/19 08:41 Carbonic Acid 1.27 mmol/L (1.05-1.35) 09/15/19 03:10 HCO3/H2CO3 Ratio 20:1 09/15/19 03:10 ABG pH 7.40 (7.35-7.45) 09/15/19 03:10 ABG pCO2 42.2 mmHg (35-45) 09/15/19 03:10 ABG pO2 73.9 mmHg (80-100) L 09/15/19 03:10 ABG HCO3 25.7 mmol/L (20-24) H 09/15/19 03:10 ABG Total CO2 27.0 mmol/L (23-27) 09/15/19 03:10 ABG O2 Saturation 94.9 % (94-98) 09/15/19 03:10 ABG Base Excess 0.7 mmol/L 09/15/19 03:10 FiO2 3L 09/15/19 03:10 Sodium 138.0 mmol/L (137-145) 09/18/19 05:55 Potassium 4.8 mmol/L (3.6-5.0) 09/18/19 05:55 Chloride 95 mmol/L (98-107) L 09/18/19 05:55 Carbon Dioxide 30 mmol/L (22-30) 09/18/19 05:55 Anion Gap 13 (5-19) 09/18/19 05:55 BUN 34 mg/dL (7-20) H 09/18/19 05:55 Creatinine 1.35 mg/dL (0.52-1.25) H 09/18/19 05:55 Est GFR ( Amer) > 60 (>60) 09/18/19 05:55 Est GFR (MDRD) Non-Af 52 (>60) L 09/18/19 05:55 Glucose 117 mg/dL (75-110) H 09/18/19 05:55 POC Glucose 107 mg/dL (70-110) 09/18/19 11:40 Calcium 9.3 mg/dL (8.4-10.2) 09/18/19 05:55 Total Bilirubin 0.6 mg/dL (0.2-1.3) 09/15/19 01:55 Direct Bilirubin 0.3 mg/dL (0.0-0.4) 09/15/19 01:55 Neonat Total Bilirubin Not Reportable 09/15/19 01:55 Neonat Direct Bilirubin Not Reportable 09/15/19 01:55 Neonat Indirect Bili Not Reportable 09/15/19 01:55 AST 29 U/L (17-59) 09/15/19 01:55 ALT 16 U/L (<50) 09/15/19 01:55 Alkaline Phosphatase 61 U/L (38-126) 09/15/19 01:55 Troponin I 0.017 ng/mL 09/15/19 16:45 NT-Pro-B Natriuret Pep 867 pg/mL (<125) H 09/15/19 01:55 Total Protein 7.2 g/dL (6.3-8.2) 09/15/19 01:55 Albumin 3.7 g/dL (3.5-5.0) 09/15/19 01:55 Urine Color YELLOW 09/15/19 05:20 Urine Appearance CLEAR 09/15/19 05:20 Urine pH 5.0 (5.0-9.0) 09/15/19 05:20 Ur Specific Exline 1.016 09/15/19 05:20 Urine Protein NEGATIVE mg/dL (NEGATIVE) 09/15/19 05:20 Urine Glucose (UA) NEGATIVE mg/dL (NEGATIVE) 09/15/19 05:20 Urine Ketones NEGATIVE mg/dL (NEGATIVE) 09/15/19 05:20 Urine Blood NEGATIVE (NEGATIVE) 09/15/19 05:20 Urine Nitrite NEGATIVE (NEGATIVE) 09/15/19 05:20 Urine Bilirubin NEGATIVE (NEGATIVE) 09/15/19 05:20 Urine Urobilinogen NEGATIVE mg/dL (<2.0) 09/15/19 05:20 Ur Leukocyte Esterase NEGATIVE (NEGATIVE) 09/15/19 05:20 Urine WBC (Auto) 3 /HPF 09/15/19 05:20 Urine RBC (Auto) 1 /HPF 09/15/19 05:20 U Hyaline Cast (Auto) 1 /LPF 09/15/19 05:20 Urine Mucus (Auto) OCC /LPF 09/15/19 05:20 Urine Ascorbic Acid 40 (NEGATIVE) H 09/15/19 05:20 Influenza A (Rapid) NEGATIVE (NEGATIVE) 09/15/19 01:47 Influenza B (Rapid) NEGATIVE (NEGATIVE) 09/15/19 01:47 09/15/19 09/15/19 09/15/19 01:55 01:55 05:10 Troponin I 0.035 0.024 NT-Pro-B Natriuret Pep 867 H 09/15/19 09/15/19 11:12 16:45 Troponin I 0.014 0.017 NT-Pro-B Natriuret Pep Impressions: Chest X-Ray 09/15/19 01:13 IMPRESSION: Pulmonary edema pattern without pleural effusions or focal consolidation. Plan Time Spent: Greater than 30 Minutes - 34 minutes Stroke Is this a Stroke Patient?: No Acute Heart Failure - Is this a Heart Failure Patient?: Yes Documentation of LVEF assessment?: Yes LVEF < 40%?: No- if no continue to question #3 3. Anticoagulant therapy for permanect/persistent/paraoxysmal Afib or Aflutter: Yes
== END 2019-09-18 17:37 | disposition home or self-care (01) | DRG 291 ==
LOC: ER 23:26 → EH 09-15 04:25 → 4N 09-15 06:13
PROVIDERS: ADMIT Internal Medicine; ATTEND Internal Medicine
DX: I11.0 Hypertensive heart disease with heart failure (principal); J96.21 Acute and chronic respiratory failure with hypoxia; I50.31 Acute diastolic (congestive) heart failure; J44.1 Chronic obstructive pulmonary disease with (acute) exacerbation; J96.11 Chronic respiratory failure with hypoxia; I25.10 Atherosclerotic heart disease of native coronary artery without angina pectoris; E11.9 Type 2 diabetes mellitus without complications; F41.9 Anxiety disorder, unspecified; F43.10 Post-traumatic stress disorder, unspecified; F32.9 Major depressive disorder, single episode, unspecified; G47.33 Obstructive sleep apnea (adult) (pediatric); E78.5 Hyperlipidemia, unspecified; M19.90 Unspecified osteoarthritis, unspecified site; Z96.653 Presence of artificial knee joint, bilateral; Z79.899 Other long term (current) drug therapy; Z91.013 Allergy to seafood; Z86.73 Personal history of transient ischemic attack (TIA), and cerebral infarction without residual deficits; Z88.8 Allergy status to other drugs, medicaments and biological substances; Z88.3 Allergy status to other anti-infective agents; Z95.5 Presence of coronary angioplasty implant and graft; Z82.49 Family history of ischemic heart disease and other diseases of the circulatory system; Z79.84 Long term (current) use of oral hypoglycemic drugs; Z85.51 Personal history of malignant neoplasm of bladder
CPT/HCPCS: 36415; 36600; 71045; 80048; 80053; 81001; 82803; 82962; 83880; 84484; 85025; 87804; 93005; 93010; 93306; 94640; 94667; 94668; 94762; 94799; 96365; 96375; 99285; J0360; J0456; J0696; J1644; J1815; J1940; J1956; J2930; J3490; J7620

== ENCOUNTER 2019-10-19 19:29 | Emergency (ER) | payer MEDICARE, OTHER ==
--- NOTE | 2019-10-19 20:45 | ER Document Report ---
ED Medical Screen (RME) - General Chief Complaint: Abdominal Pain Stated Complaint: ABDOMINAL PAIN Time Seen by Provider: 10/19/19 20:42 Primary Care Provider: ROSALES DIALLO, SUPERVISOR FRONT [Primary Care Provider] - Follow up as needed TRAVEL OUTSIDE OF THE [place] 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 Patient states that he did have nausea and vomiting yesterday. He is urinating normally and having normal bowel movements. Pain does not radiate otherwise. No fever, chest pain, or shortness of breath. Imaging deferred to main side provider after more thorough eval of abd and Cr check. I have treated and performed a rapid initial assessment of this patient. A comprehensive ED assessment and evaluation of the patient, analysis of test results and completion of medical decision making process will be conducted by additional ED providers. PHYSICAL EXAMINATION: GENERAL: Well-appearing, well-nourished and in no acute distress. A&Ox4. Answers questions appropriately. Abdomen: Limited exam in triage, mild tenderness noted across the mid to lower abdomen. - Related Data Allergies/Adverse Reactions: iodine [Iodine] Allergy (Severe, Verified 05/02/17 10:05) pt has difficulty breathing bacitracin [Bacitracin] Allergy (Verified 05/02/17 10:05) Anaphylaxis omeprazole [Omeprazole] Allergy (Verified 05/02/17 10:05) pantoprazole [Pantoprazole] Allergy (Verified 05/02/17 10:05) shellfish derived Allergy (Verified 05/02/17 10:05) CREST TOOTHPASTE Allergy (Severe, Uncoded 05/02/17 10:05) shortness of breath, closses up throat dye Allergy (Severe, Uncoded 05/02/17 10:05) Shortness of Breath OPTHALIME Allergy (Uncoded 05/02/17 10:05) Past Medical History - Social History Chew tobacco use (# tins/day): No Frequency of alcohol use: Social Drug Abuse: None - Past Medical History Cardiac Medical History: Reports: Hx Coronary Artery Disease - WITH STENT, Hx Hypercholesterolemia Denies: Hx Heart Attack, Hx Hypertension Pulmonary Medical History: Reports: Hx COPD - DOES NOT WEAR O2 Denies: Hx Asthma, Hx Bronchitis, Hx Pneumonia, Hx Tuberculosis Neurological Medical History: Reports: Hx Cerebrovascular Accident - 1983. Denies: Hx Seizures Endocrine Medical History: Reports: Hx Diabetes Mellitus Type 2 Renal/ Medical History: Denies: Hx Peritoneal Dialysis Musculoskeltal Medical History: Reports Hx Arthritis Psychiatric Medical History: Reports: Hx Anxiety, Hx Depression, Hx Post Traumatic Stress Disorder Past Surgical History: Reports: Hx Cardiac Catheterization, Hx Orthopedic Surgery - Bilat Knee Replacements. Denies: Hx Pacemaker - Immunizations Hx Diphtheria, Pertussis, Tetanus Vaccination: Yes Physical Exam - Vital signs Vitals: Temp Pulse Resp BP Pulse Ox 98.1 F 95 20 187/89 H 98 10/19/19 20:05 10/19/19 20:05 10/19/19 20:05 10/19/19 20:05 10/19/19 20:05 Course - Vital Signs Vital signs: Temp Pulse Resp BP Pulse Ox 98.1 F 95 20 187/89 H 98 10/19/19 20:05 10/19/19 20:05 10/19/19 20:05 10/19/19 20:05 10/19/19 20:05 Doctor's Discharge - Discharge Referrals: ROSALES DIALLO, SUPERVISOR FRONT [Primary Care Provider] - Follow up as needed
[2019-10-19 23:02] LABS: ABSOLUTE EOSINOPHILS # (AUTO) 0.1 10^3/uL (0.0-0.6); ABSOLUTE LYMPHOCYTES (AUTO) 0.9 10^3/uL (0.5-4.7); ABSOLUTE MONOCYTES (AUTO) 0.8 10^3/uL (0.1-1.4); ABSOLUTE NEUT (AUTO) 8.2 10^3/uL (1.7-8.2); BASOPHILS % (AUTO) 0.2 % (0-2); EOSINOPHILS % (AUTO) 1.2 % (0-6); HEMATOCRIT 39.6 % (37.9-51.0); HEMOGLOBIN 13.2 g/dL (13.5-17.0); LYMPHOCYTES % (AUTO) 9.1 % (13-45); MEAN CORPUSCULAR HEMOGLOBIN 30.6 pg (27.0-33.4); MEAN CORPUSCULAR HGB CONC 33.4 g/dL (32.0-36.0); MEAN CORPUSCULAR VOLUME 92 fl (80-97); MONOCYTES % (AUTO) 7.7 % (3-13); PLATELET COUNT 236 10^3/uL (150-450); RED BLOOD COUNT 4.32 10^6/uL (4.35-5.55); RED CELL DISTRIBUTION WIDTH 14.9 % (11.5-14.0); SEGMENTED NEUTROPHILS % (AUTO) 81.8 % (42-78); TOTAL CELLS COUNTED % (AUTO) 100 %
[2019-10-19 23:23] LABS: ALBUMIN 3.8 g/dL (3.5-5.0); ALKALINE PHOSPHATASE 67 U/L (38-126); ANION GAP 8 (5-19); ASPARTATE AMINO TRANSFERASE 23 U/L (17-59); BILIRUBIN,DIRECT 0.3 mg/dL (0.0-0.4); BILIRUBIN,TOTAL 0.8 mg/dL (0.2-1.3); BLOOD UREA NITROGEN 16 mg/dL (7-20); CALCIUM 9.6 mg/dL (8.4-10.2); CARBON DIOXIDE 31 mmol/L (22-30); CHLORIDE 100 mmol/L (98-107); GLUCOSE 163 mg/dL (75-110); POTASSIUM 4.5 mmol/L (3.6-5.0); TOTAL PROTEIN 7.4 g/dL (6.3-8.2)
[2019-10-19] MEDS ORDERED: RINGERS SOLUTION,LACTATED 1,000 ML IV ONE (23:40)
--- NOTE | 2019-10-20 01:18 | RADIOLOGY REPORT (SQ) ---
CLINICAL HISTORY: cough COMPARISON: 09/15/2019. TECHNIQUE: XR CHEST 2 VIEWS 10/19/2019 11:39 PM INSTRUMENT ENGINEER FINDINGS: Cardiac silhouette is normal in size. Lungs are clear without consolidation, atelectasis, mass or edema. There is no pleural effusion. There is no pneumothorax. There are no acute osseous findings. IMPRESSION: Clear lungs.
--- NOTE | 2019-10-20 02:25 | ER Document Report ---
ED General - General TRAVEL OUTSIDE OF THE [place] IN LAST 30 DAYS: No <EVAN MCLAIN - Last Filed: 10/20/19 02:19> <CHARMAINE LYN - Last Filed: 10/20/19 03:44> - General Chief Complaint: Abdominal Pain Stated Complaint: ABDOMINAL PAIN Time Seen by Provider: 10/19/19 20:42 Primary Care Provider: ROSALES DIALLO, HYDROMETER CALIBRATOR [Primary Care Provider] - Follow up as needed Notes: 73-year-old male presents the emergency department complaining of a 2-day history of periumbilical pain that worsens when he coughs but does not change when he changes position. States it feels somewhat similar to when he had pneumonia 1 month ago. Patient states that he had a had one episode of vomiting around 12:30 AM and after that the cough resolved. Patient states his pain has now decreased around his umbilicus. Does admit to a temperature of 100 point something around 3 PM. Has not had any other symptoms. (EVAN MCLAIN) - Related Data Allergies/Adverse Reactions: iodine [Iodine] Allergy (Severe, Verified 10/20/19 00:04) pt has difficulty breathing bacitracin [Bacitracin] Allergy (Verified 05/02/17 10:05) Anaphylaxis omeprazole [Omeprazole] Allergy (Verified 05/02/17 10:05) pantoprazole [Pantoprazole] Allergy (Verified 05/02/17 10:05) shellfish derived Allergy (Verified 05/02/17 10:05) CREST TOOTHPASTE Allergy (Severe, Uncoded 05/02/17 10:05) shortness of breath, closses up throat OPTHALIME Allergy (Uncoded 05/02/17 10:05) dye Adverse Reaction (Severe, Uncoded 10/20/19 00:04) Swelling of Throat Past Medical History - General Information source: Patient - Social History Smoking Status: Former Smoker Chew tobacco use (# tins/day): No Frequency of alcohol use: Occasional Drug Abuse: None Family History: Reviewed & Not Pertinent, CAD Patient has suicidal ideation: No Patient has homicidal ideation: No - Past Medical History Cardiac Medical History: Reports: Hx Coronary Artery Disease - WITH STENT, Hx Hypercholesterolemia Denies: Hx Heart Attack, Hx Hypertension Pulmonary Medical History: Reports: Hx COPD - DOES NOT WEAR O2 Denies: Hx Asthma, Hx Bronchitis, Hx Pneumonia, Hx Tuberculosis Neurological Medical History: Reports: Hx Cerebrovascular Accident - 1983. Denies: Hx Seizures Endocrine Medical History: Reports: Hx Diabetes Mellitus Type 2 Renal/ Medical History: Denies: Hx Peritoneal Dialysis Musculoskeletal Medical History: Reports Hx Arthritis Psychiatric Medical History: Reports: Hx Anxiety, Hx Depression, Hx Post Traumatic Stress Disorder Past Surgical History: Reports: Hx Cardiac Catheterization, Hx Orthopedic Surgery - Bilat Knee Replacements. Denies: Hx Pacemaker - Immunizations Hx Diphtheria, Pertussis, Tetanus Vaccination: Yes Hx Pneumococcal Vaccination: 08/28/11 <EVAN MCLAIN - Last Filed: 10/20/19 02:19> Review of Systems - Review of Systems Constitutional: See HPI, Chills, Diaphoresis, Fever EENT: No symptoms reported Cardiovascular: No symptoms reported Respiratory: See HPI, Cough. denies: Hurts to breathe, Short of breath Gastrointestinal: See HPI, Abdominal pain, Vomiting Genitourinary: No symptoms reported -: Yes All other systems reviewed and negative <EVAN MCLAIN - Last Filed: 10/20/19 02:19> Physical Exam - Vital signs Interpretation: Hypertensive <EVAN MCLAIN - Last Filed: 10/20/19 02:19> - Vital signs Vitals: Temp Pulse Resp BP Pulse Ox 98.1 F 95 20 187/89 H 98 10/19/19 20:05 10/19/19 20:05 10/19/19 20:05 10/19/19 20:05 10/19/19 20:05 - Notes Notes: GENERAL: Alert, interacts well. No acute distress. HEAD: Normocephalic, atraumatic EYES: Pupils equal, round and reactive to light, extraocular movements intact. ENT: Oral mucosa moist, tongue midline. NECK: Full range of motion, supple, trachea midline. LUNGS: Clear to auscultation bilaterally, no wheezes, rales or rhonchi, no respiratory distress. HEART: Regular rate and rhythm, no murmurs, gallops, rubs. ABDOMEN: Soft, periumbilical and bilateral lower quadrant tenderness to palpation without guarding, rigidity or rebounding, nondistended, bowel sounds present in all 4 quadrants. EXTREMITIES: Moves all 4 extremities spontaneously, no edema, radial and dorsalis pedis pulses 2/4 bilaterally. No cyanosis. NEUROLOGICAL: Alert and oriented x3, normal speech. PSYCH: Normal mood, normal affect. SKIN: Warm, Dry, normal turgor, no rashes or lesions noted. (EVAN MCLAIN) Course - Laboratory Result Diagrams: 10/19/19 22:45 10/19/19 22:45 <EVAN MCLAIN - Last Filed: 10/20/19 02:19> - Laboratory Result Diagrams: 10/19/19 22:45 02 22:45 - Diagnostic Test Radiology reviewed: Image reviewed, Reports reviewed <CHARMAINE LYN - Last Filed: 10/20/19 03:44> - Re-evaluation Re-evalutation: 10/20/19 02:26 CBC does not show leukocytosis, there is a mild anemia with hemoglobin 13.2, creatinine elevated at 1.26 but this is actually very close to his baseline, nonfasting glucose is 163, lipase normal, chest x-ray shows no acute process. 10/20/19 02:26 I am concerned for possible diverticulitis given his lower abdominal pain and reported fever at home. Patient is allergic to IV dye, it "causes his throat to swell shut" so he is drinking oral contrast and we are waiting for him to go to CAT scan. This patient will be signed out to Dr. Lyn for follow-up on the results of his CAT scan. (EVAN MCLAIN) - Vital Signs Vital signs: Temp Pulse Resp BP Pulse Ox 98.1 F 95 20 151/81 H 94 10/19/19 20:05 10/19/19 20:05 10/20/19 03:00 10/20/19 02:01 10/20/19 03:00 - Laboratory Laboratory results interpreted by me: 10/19/19 10/19/19 22:45 22:45 RBC 4.32 L Hgb 13.2 L RDW 14.9 H Lymph % (Auto) 9.1 L Seg Neutrophils % 81.8 H Carbon Dioxide 31 H Creatinine 1.26 H Est GFR (MDRD) Non-Af 56 L Glucose 163 H - Diagnostic Test Radiology results interpreted by me: 10/20/19 03:35 CT of abdomen and pelvis disclose no obstructive or inflammatory process. Patie nt was noted to have tiny gallstones without any obstruction. There was diverticulosis without diverticulitis and there is no other obstructive or inflammatory process is noted. Discussed these results with the patient and explained it to him and his and that there was no surgical indication for any explanation for his lower abdominal pain. Most likely patient did report to me that he has constipation without bowel movements on a daily basis and that he is on medications that promote his constipation. Explained to patient despite what ever medications he is on creates constipation he should do everything he can to combat that with fluids and fiber and perhaps medications that allow him to have soft stools. I explained the patient I will put him on stool softeners. Also patient has on CT scan of abdomen pelvis reported small fat-containing inguinal hernias this also can be a cause of his lower abdominal pain as fat gets entrapped and incarcerated and herniation can cause pain. Again I recommend the patient be placed on Tylenol if needed. 10/20/19 03:38 (CHARMAINE LYN) Discharge <EVAN MCLAIN - Last Filed: 10/20/19 02:19> <CHARMAINE LYN - Last Filed: 10/20/19 03:44> - Discharge Clinical Impression: Abdominal pain, Constipation by delayed colonic transit, Inguinal hernia of left side without obstruction or gangrene Condition: Stable Disposition: HOME, SELF-CARE Instructions: Abdominal Pain ([facility]), Bulk Laxatives Additional Instructions: Hernia You have a hernia. A hernia forms at a weak spot in the abdominal wall. Bowel slips out of the abdominal cavity into the weak spot. Hernias tend to occur in the groin (especially in males), the fold of the thigh, the naval, or at a surgical scar. Surgical repair of the defect is usually necessary. The problem tends to get worse. It's important that you follow up as recommended. For now, you should avoid straining, heavy lifting, and vigorous exercise. Complications occur if the hernia becomes tightly stuck. You should come back immediately if the area becomes increasingly painful, swollen, or discolored, or if you develop abdominal pain and vomiting. You have bilateral small inguinal hernias with fat containing tissue in the herniations. This certainly can be a cause of lower abdominal pain and as the hernia squeezes on the fat tissue that is entrapped. You might want to follow- up with the surgeon if you find that this may be a recurrent problem to you. Otherwise I recommend taking Tylenol as needed. Referrals: DIALLO,ROSALES C, HYDROMETER CALIBRATOR [Primary Care Provider] - Follow up as needed
--- NOTE | 2019-10-20 03:14 | RADIOLOGY REPORT (SQ) ---
CLINICAL HISTORY: LLq abd pain, r/o diverticulitis COMPARISON: None. TECHNIQUE: CT ABDOMEN PELVIS WITHOUT IV CONTRAST on 10/20/2019 12:17 AM SMOOTH PLATER This exam was performed according to our departmental dose-optimization program, which includes automated exposure control, adjustment of the mA and/or kV according to patient size and/or use of iterative reconstruction technique. FINDINGS: Lower lungs are clear. Abdomen: Liver is fatty in attenuation. There is no biliary dilatation. Tiny gallstones in the gallbladder. The pancreas and spleen are normal in appearance. Adrenal glands are normal. Kidneys are moderately atrophic. Abdominal aorta is densely calcified without aneurysm. There is no free air. There is no retroperitoneal adenopathy. Pelvis: There is mild distal colonic diverticulosis without diverticulitis. Urinary bladder is unremarkable. There is no free fluid. There are small fat-containing inguinal hernias. Appendix is not clearly seen. Skeleton: There are no acute osseous findings. No suspicious bony lesions. IMPRESSION: No definite acute inflammatory process.
[2019-10-20 04:01] VITALS: BP 172/83
== END 2019-10-20 04:32 | disposition home or self-care (01) ==
LOC: ER 19:29
DX: K40.90 Unilateral inguinal hernia, without obstruction or gangrene, not specified as recurrent (principal); K59.01 Slow transit constipation; K80.80 Other cholelithiasis without obstruction; K57.10 Diverticulosis of small intestine without perforation or abscess without bleeding; R10.9 Unspecified abdominal pain; R10.33 Periumbilical pain; R05 Cough; R11.10 Vomiting, unspecified; R50.9 Fever, unspecified; R61 Generalized hyperhidrosis; I10 Essential (primary) hypertension; Z88.8 Allergy status to other drugs, medicaments and biological substances; Z87.891 Personal history of nicotine dependence; I25.10 Atherosclerotic heart disease of native coronary artery without angina pectoris; J44.9 Chronic obstructive pulmonary disease, unspecified; E11.9 Type 2 diabetes mellitus without complications
CPT/HCPCS: 99284; 96360; 96361; 36415; 83690; 85025; 80053; 71046; 74176; J7120

== ENCOUNTER 2019-12-11 13:50 | Emergency (ER) | payer OTHER, MEDICARE ==
[2019-12-11] MEDS ORDERED: HYDROCODONE/ACETAMINOPHEN 10-325 MG TABLET PO ONE (14:25)
[2019-12-11] MEDS ORDERED: ONDANSETRON 4 MG TAB.RAPDIS PO ONE (14:25)
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
[2019-12-11 15:19] VITALS: BP 110/79
== END 2019-12-11 15:31 | disposition home or self-care (01) ==
LOC: ER 13:50
DX: M54.5 Low back pain (principal); V43.51XA Car driver injured in collision with sport utility vehicle in traffic accident, initial encounter; Z79.02 Long term (current) use of antithrombotics/antiplatelets
CPT/HCPCS: 99283; 74176; S0119